=== PATIENT | female | born 1990 | race African-American/Black ===

== ENCOUNTER 2016-10-21 04:50 | Emergency (ER) | payer BC ==
[2016-10-21] MEDS ORDERED: IBUPROFEN 800 MG TABLET PO ONE (07:51)
--- NOTE | 2016-10-21 07:54 | ER Document Report ---
ED General - General Chief Complaint: Nausea/Vomiting Stated Complaint: ABDOMINAL PAIN AND BACK PAIN Mode of Arrival: Medic Information source: Patient Notes: Patient presents to the emergency department via EMS for reports that she was woken up at approximately 300 this morning with severe abdominal pain with nausea vomiting. She reports she had one bowel movement. She reports cough with yellow sputum for the past week. Denies fever. She now reports headache since they gave her aspirin by EMS. Patient looks nontoxic, no active coughing. TRAVEL OUTSIDE OF THE [place] IN LAST 30 DAYS: No - HPI Onset: This morning - 0300 Onset/Duration: Sudden Quality of pain: Sharp Severity: Severe Associated symptoms: Productive cough, Headache, Nausea, Vomiting Exacerbated by: Denies Relieved by: Denies Similar symptoms previously: No Recently seen / treated by doctor: No - Related Data Allergies/Adverse Reactions: No Known Allergies Allergy (Verified 10/21/16 05:13) Past Medical History - General Information source: Patient Last Menstrual Period: 09/19/16 - Social History Smoking Status: Current Every Day Smoker Cigarette use (# per day): Yes Chew tobacco use (# tins/day): No Frequency of alcohol use: None Drug Abuse: None Occupation: [employer] Family History: Reviewed & Not Pertinent Pulmonary Medical History: Reports: Hx Asthma Neurological Medical History: Reports: Hx Migraine Renal/ Medical History: Denies: Hx Peritoneal Dialysis Surgical Hx: Negative - Immunizations Hx Diphtheria, Pertussis, Tetanus Vaccination: Yes Review of Systems - Review of Systems Notes: Review HPI for review of systems., All other systems negative Physical Exam - Vital signs Vitals: Temp Pulse Resp BP Pulse Ox 98.2 F 69 16 111/64 100 10/21/16 05:20 10/21/16 05:20 10/21/16 05:20 10/21/16 05:20 10/21/16 05:20 - Notes Notes: PHYSICAL EXAMINATION: GENERAL: Well-appearing and in no acute distress nontoxic looking HEAD: Atraumatic, normocephalic. EYES: Pupils equal round and reactive to light, extraocular movements intact, sclera anicteric, conjunctiva are normal. ENT: TM WNL, nares patent, oropharynx clear without exudates. Moist mucous membranes. NECK: Normal range of motion, supple without lymphadenopathy LUNGS: CTAB and equal. No wheezes rales or rhonchi. HEART: Regular rate and rhythm without murmurs ABDOMEN: Soft, no tenderness. No guarding, no rebound BACK: Left flank pain EXTREMITIES: Normal range of motion, no pitting edema. No cyanosis. NEUROLOGICAL: Cranial nerves grossly intact. Normal sensory/motor exams. PSYCH: Normal mood, normal affect. SKIN: Warm, Dry, normal turgor, no rashes or lesions noted Course - Re-evaluation Re-evalutation: 10/21/16 09:29 Positive nitrite Patient updated on UTI. Discussed Macrobid. Patient instructed to push fluids take meds as prescribed follow up with primary care - Vital Signs Vital signs: Temp Pulse Resp BP Pulse Ox 98.2 F 69 16 111/64 100 10/21/16 05:20 10/21/16 05:20 10/21/16 05:20 10/21/16 05:20 10/21/16 05:20 - Laboratory Result Diagrams: 10/21/16 08:00 10/21/16 08:00 Laboratory results interpreted by me: 10/21/16 10/21/16 08:00 08:00 Sodium 136.9 L Chloride 108 H Urine Nitrite POSITIVE H Discharge - Discharge Clinical Impression: UTI (urinary tract infection) Nausea & vomiting Qualifiers: Vomiting type: unspecified Vomiting Intractability: non-intractable Qualified Code(s): R11.2 - Nausea with vomiting, unspecified Condition: Stable Disposition: HOME, SELF-CARE Instructions: Antinausea Medication ([facility]), Urinary Tract Infection ([facility]), Nitrofurantoin ([facility]) Additional Instructions: *You have been evaluated for nausea and vomiting, abdominal pain, UTI *Take medication as prescribed *Cheerier temperature take Tylenol or Motrin as indicated *Push fluids *Follow up with your primary care provider within one week for recheck *Plan urine recheck in one week *Return to ED for worsening condition, changes, needs, fever, increased pain Prescriptions: Nitrofurantoin/Nitrofuran Mac [Macrobid 100 mg Capsule] 100 mg PO BID #20 capsule Ondansetron [Zofran Odt 4 mg Tablet] 1 - 2 tab PO Q4H #10 tab.rapdis Forms: Return to Work
[2016-10-21 08:26] LABS: ABSOLUTE BASOPHILS # (AUTO) 0.1 10^3/uL (0.0-0.2); ABSOLUTE LYMPHOCYTES (AUTO) 1.1 10^3/uL (0.5-4.7); ABSOLUTE MONOCYTES (AUTO) 0.4 10^3/uL (0.1-1.4); ABSOLUTE NEUT (AUTO) 5.6 10^3/uL (1.7-8.2); BASOPHILS % (AUTO) 1.1 % (0-2); EOSINOPHILS % (AUTO) 0.3 % (0-6); HEMATOCRIT 36.3 % (36.0-47.0); HEMOGLOBIN 12.1 g/dL (12.0-15.5); LYMPHOCYTES % (AUTO) 15.9 % (13-45); MEAN CORPUSCULAR HEMOGLOBIN 27.9 pg (27.0-33.4); MEAN CORPUSCULAR HGB CONC 33.4 g/dL (32.0-36.0); MEAN CORPUSCULAR VOLUME 84 fl (80-97); MONOCYTES % (AUTO) 5.2 % (3-13); RED BLOOD COUNT 4.34 10^6/uL (3.72-5.28); RED CELL DISTRIBUTION WIDTH 13.3 % (11.5-14.0); SEGMENTED NEUTROPHILS % (AUTO) 77.5 % (42-78); WHITE BLOOD COUNT 7.2 10^3/uL (4.0-10.5)
[2016-10-21 08:29] LABS: APPEARANCE,URINE SLIGHTLY-CLOUDY; BILIRUBIN,URINE NEGATIVE (NEGATIVE); GLUCOSE, URINE NEGATIVE (NEGATIVE); KETONES,URINE NEGATIVE (NEGATIVE); LEUKOCYTE ESTERASE,URINE NEGATIVE (NEGATIVE); NITRITE,URINE POSITIVE (NEGATIVE); PROTEIN,URINE NEGATIVE (NEGATIVE); URINE SPECIFIC GRAVITY 1.015; UROBILINOGEN,URINE NEGATIVE mg/dL (<2.0)
[2016-10-21 08:47] LABS: ALANINE AMINOTRANSFERASE 33 U/L (9-52); ALBUMIN 3.5 g/dL (3.5-5.0); ALKALINE PHOSPHATASE 78 U/L (38-126); ANION GAP 7 (5-19); ASPARTATE AMINO TRANSFERASE 21 U/L (14-36); BILIRUBIN,TOTAL 0.3 mg/dL (0.2-1.3); BLOOD UREA NITROGEN 10 mg/dL (7-20); CALCIUM 9.6 mg/dL (8.4-10.2); CARBON DIOXIDE 22 mmol/L (22-30); CHLORIDE 108 mmol/L (98-107); CREATININE RESULT 0.61 mg/dL (0.52-1.25); GLUCOSE 87 mg/dL (75-110); POTASSIUM 4.2 mmol/L (3.6-5.0); SODIUM 136.9 mmol/L (137-145); TOTAL PROTEIN 6.5 g/dL (6.3-8.2)
[2016-10-21] MEDS ORDERED: ONDANSETRON 4 MG TAB.RAPDIS PO ONE (09:29)
[2016-10-21 10:01] VITALS: BP 136/86
== END 2016-10-21 09:40 | disposition home or self-care (01) ==
LOC: ER 04:50
DX: N39.0 Urinary tract infection, site not specified (principal); R11.2 Nausea with vomiting, unspecified; R10.9 Unspecified abdominal pain; M54.9 Dorsalgia, unspecified; R51 Headache; R05 Cough; F17.210 Nicotine dependence, cigarettes, uncomplicated
CPT/HCPCS: 99284; 36415; 87086; 85025; 81025; 87088; 80053; 81001; 87186; 87804; 71020; S0119

== ENCOUNTER 2016-12-09 08:48 | Emergency (ER) | payer BC ==
[2016-12-09] MEDS ORDERED: ACETAMINOPHEN 325 MG TABLET PO ONE (10:24)
--- NOTE | 2016-12-09 10:27 | ER Document Report ---
ED Respiratory Problem - General Chief Complaint: Cold Symptoms Stated Complaint: POSSIBLE FLU SYMPTOMS Time seen by provider: 10:22 Mode of Arrival: Ambulatory Information source: Patient Notes: 26-year-old female presents to cough congestion flulike symptoms air pain and sore throat and productive cough but denies fever. States symptoms have been for about a week she does have a history of asthma and anxiety. TRAVEL OUTSIDE OF THE [place] IN LAST 30 DAYS: No - HPI Patient complains to provider of: Asthma Onset: Last week Duration: Continuous Initiating Event: URI Quality of pain: Achy Severity: Mild Pain Level: 2 Cough: Productive Sputum amount: Small Sputum color: Yellow Sputum consistency: Thick Associated symptoms: Cough, PND, Runny nose, Sinus pain/pressure Similar symptoms previously: Yes Recently seen / treated by doctor: No - Related Data Allergies/Adverse Reactions: No Known Allergies Allergy (Verified 12/09/16 09:00) Past Medical History - General Information source: Patient - Social History Smoking Status: Current Every Day Smoker Cigarette use (# per day): Yes - 2-3 cigarettes a day Chew tobacco use (# tins/day): No Smoking Education Provided: Yes - less than 2 minutes Frequency of alcohol use: None Drug Abuse: None Occupation: call center Lives with: Alone Family History: CAD, DM, Hyperlipidemia, Hypertension, Malignancy Patient has suicidal ideation: No Patient has homicidal ideation: No - Past Medical History Cardiac Medical History: Reports: None Pulmonary Medical History: Reports: Hx Asthma EENT Medical History: Reports: None Neurological Medical History: Reports: Hx Migraine Endocrine Medical History: Reports: None Renal/ Medical History: Reports: None Malignancy Medical History: Reports: None GI Medical History: Reports: None Musculoskeltal Medical History: Reports None Skin Medical History: Reports None Psychiatric Medical History: Reports: Hx Anxiety Traumatic Medical History: Reports: None Infectious Medical History: Reports: None Surgical Hx: Negative Past Surgical History: Reports: None - Immunizations Hx Diphtheria, Pertussis, Tetanus Vaccination: Yes Review of Systems - Review of Systems Constitutional: Recent illness EENT: Nose discharge, Sinus discharge, Throat pain Cardiovascular: No symptoms reported Respiratory: Cough Gastrointestinal: No symptoms reported Genitourinary: No symptoms reported Female Genitourinary: No symptoms reported Musculoskeletal: No symptoms reported Skin: No symptoms reported Hematologic/Lymphatic: No symptoms reported Neurological/Psychological: No symptoms reported -: Yes All other systems reviewed and negative Physical Exam - Vital signs Vitals: Temp Pulse Resp BP Pulse Ox 98.2 F 78 16 121/66 99 12/09/16 09:02 12/09/16 09:02 12/09/16 09:02 12/09/16 09:02 12/09/16 09:02 Interpretation: Normal - General General appearance: Appears well, Alert - HEENT Head: Normocephalic, Atraumatic Eyes: Normal Pupils: PERRL Ears: Normal External canal: Normal Tympanic membrane: Normal Sinus: Normal Nasal: Purulent discharge Mouth/Lips: Normal Mucous membranes: Normal Pharynx: Post nasal drainage Neck: Normal - Respiratory Respiratory status: No respiratory distress Chest status: Nontender Breath sounds: Normal Chest palpation: Normal - Cardiovascular Rhythm: Regular Heart sounds: Normal auscultation Murmur: No - Abdominal Inspection: Normal Distension: No distension Bowel sounds: Normal Tenderness: Nontender Organomegaly: No organomegaly - Back Back: Normal, Nontender - Extremities General upper extremity: Normal inspection, Nontender, Normal color, Normal ROM , Normal temperature General lower extremity: Normal inspection, Nontender, Normal color, Normal ROM , Normal temperature, Normal weight bearing. No: Myron's sign - Neurological Neuro grossly intact: Yes Cognition: Normal Orientation: AAOx4 [place] Coma Scale Eye Opening: Spontaneous [place] Coma Scale Verbal: Oriented [place] Coma Scale Motor: Obeys Commands [place]ár[place] Coma Scale Total: 15 Speech: Normal Motor strength normal: LUE, RUE, LLE, RLE Sensory: Normal - Psychological Associated symptoms: Normal affect, Normal mood - Skin Skin Temperature: Warm Skin Moisture: Dry Skin Color: Normal Course - Re-evaluation Re-evalutation: 12/09/16 11:18 Discussed labs with patient discussed careful fluid with patient. Patient instructed to call her work place and let them know that she will be out until she is fever free due to having influenza. - Vital Signs Vital signs: Temp Pulse Resp BP Pulse Ox 98.4 F 61 16 130/85 H 100 12/09/16 11:31 12/09/16 11:31 12/09/16 09:02 12/09/16 11:31 12/09/16 11:31 Discharge - Discharge Clinical Impression: Influenza A Condition: Stable Disposition: HOME, SELF-CARE Instructions: Family Physicians / Practices Additional Instructions: INFLUENZA: The physician feels that you have influenza -- the "flu". Influenza is an infection caused by a virus. Symptoms include generalized aching, fever, headache, dry cough, and fatigue. Some patients with the flu also have nausea, vomiting, and diarrhea. The fever and aches usually last two to four days, with the cough persisting another one to two weeks. Treatment of the flu, for the most part, is simply treatment of symptoms. Rest, drink plenty of fluids, and use acetaminophen for fever and aches. Do not take aspirin. There is an anti-viral medication, called Tamiflu, which may help in "type A" flu, but it's not helpful in every case of flu, and only works if started within the first 24 - 48 hours of the start of symptoms. The physician will determine whether this medication can help you. To prevent spread of the virus, use good handwashing. Shared toys should be cleaned with disinfectant. Clean the toilets, sinks, and counter surfaces in bathrooms. Launder clothing in hot water. What are conditions that should receive medical attention? The development of difficulty breathing. Lip color changes to blue or purple. Persistent vomiting and unable to keep liquids down with signs of dehydration such as: dizziness when standing, unable to urinate, or if child/ is crying no tears are noticed. Is less responsive than normal or becomes confused. How do I decrease the spread of flu in my home? Taking care of the sick patient at home: Keep the sick person in a room separate from the common areas of the house. Keep the "sickroom" door closed. If the person with the flu needs to leave the home, they should cover their nose/mouth when coughing or sneezing and wear a disposable (surgical) mask if available. These masks may be available at your local pharmacy, medical supply and hardware store. If the sick person is in common areas of the house, have them wear a surgical mask. If possible, have the sick person use a separate bathroom that should be cleaned daily with a household disinfectant. If you are the caregiver: Avoid being face to face with the sick adult person as much as possible. Try to stay at least 6 feet away and wear a disposable surgical mask when possible. When holding small children who are sick, place their chin on your shoulder so that they will not cough in your face. Wash your hands after you touch the sick person or handle their tissues and laundry. Wear a mask if you leave home, as you may be infected from taking care of someone and not know it yet. Watch yourself and others in the home for flu symptoms and contact your doctor if symptoms occur. NOTE: Antiviral medication used to reduce the symptoms of the flu works only if taken within 48 hours, and best within 24 hours of symptom onset. Household Cleaning, laundry and waste disposal: Tissues and other disposable items used by the sick person should be thrown away in the trash. Wash your hands after touching these used items. No special waste disposal is required. Keep surfaces (especially bedside tables, bathroom surfaces, and toys for children) clean by wiping them down with a safe household disinfectant according to the directions on the product label. Per Center for Disease Control advice, most people will not receive testing to confirm flu. Also based on the person's health history and onset of symptoms, not all patients will receive prescriptions for antiviral medications. If you have questions related to this, please ask your healthcare provider. For more information, you can call the Centers for Disease Control and Prevention (CDC) Hotline at 1-996-YWReoSemi This line is available in Indonesian and Bol[place]ian, 24 hours a day, 7 days a week. Or www.[employer] or www.cdc.gov Flu-Like Illness Home Instructions: The influenza virus infection can cause a wide rage of symptoms, including: Fever, cough, sore throat, body aches, headaches, chills, fatigue, with some patients reporting diarrhea and vomiting Like seasonal influenza A, H1N1 ("swine flu")in humans can vary in severity from mild to severe Severe illness with pneumonia, respiratory failure and even is possible Certain groups might be more likely to develop a severe illness from H1N1 infection. Sometimes bacterial infections may occur at the same time as or after infection with influenza viruses and lead to pneumonias, ear infections, or sinus infections. How Flu Spreads The main way that influenza viruses spread is through respiratory droplets of coughs and sneezes. This can happen when someone with the infection coughs or sneezes and the particles fly through the air and land on other people and surfaces. If the person covers their mouth and nose with their hand but does not wash their hands immediately, then these germs are passed onto the next object that they touch. People with Influenza A or suspected H1N1 (swine flu) who are cared for at home should: Check with their doctor about any special care that they might need if they are or have a health condition such as diabetes, heart disease, asthma or emphysema. Also, limit caregiver to one (if possible). women or those with chronic health conditions should not take care of the flu patient unless necessary. Check with their doctor about whether or not medications are needed that may lessen the symptoms of the flu. Stay at home until 24 hours fever free without the use of fever reducing medication. Get plenty of rest and avoid other healthy people in your home. Drink plenty of clear liquids to keep from getting dehydrated. Take medications like Tylenol (Acetaminophen), Advil/Motrin/Nuprin ( Ibuprofen) or Aleve (Naproxen) for fevers and aches. All children under the age of 18 years of age should not take aspirin or products containing aspirin (e.g. Pepto Bismol), as this can cause a rare serious illness called [place] Syndrome. Over the counter medications for flu and colds may help, but it is very important to follow the package directions. Remember that the medicine may help the symptoms, but it will not help prevent others from getting sick if they are around you. Cover coughs and sneezes using your bent arm. Clean hands with soap and water or an alcohol-based hand rub often, especially after using tissues to cough or sneeze. Encourage hand washing frequently for all people living in the home! The sick person should not have visitors other than caregivers. Encourage concerned loved ones to call instead of visit. Avoid close contact with others-do not go to work or school while sick. USE OF ACETAMINOPHEN (Tylenol): Acetaminophen may be taken for pain relief or fever control. It's much safer than aspirin, offering a wider range of "safe" dosages. It is safe during . Some brand names are Tylenol, Panadol, Datril, Anacin 3, Tempra, and Liquiprin. Acetaminophen can be repeated every four hours. The following are maximum recommended dosages: WEIGHT Dose Drops Elixir Chewable( 80mg) (LBS.) drprs=droppers tsp=teaspoon 6 40 mg 0.4 ml (1/2) 6-11 80 mg 0.8 ml (full) tsp 1 tab 12-16 120 mg 1 1/2 drprs 3/4 tsp 1 1/2 tabs 17-23 160 mg 2 drprs 1 tsp 2 tabs 24-30 240 mg 3 drprs 1 1/2 tsp 3 tabs 30-35 320 mg 2 tsp 4 tabs 36-41 360 mg 2 1/4 tsp 4 1/2 tabs 42-47 400 mg 2 1/2 tsp 5 tabs 48-53 480 mg 3 tsp 6 tabs 54-59 520 mg 3 1/4 tsp 6 1/2 tabs 60-64 560 mg 3 1/2 tsp 7 tabs 65-70 600 mg 3 3/4 tsp 7 1/2 tabs 71-76 640 mg 4 tsp 8 tabs 77-82 720 mg 4 1/2 tsp 9 tabs 83-88 800 mg 5 tsp 10 tabs >89 pounds or adults 650 mg to 900 mg Acetaminophen can be repeated every four hours. Maximum dose not to exceed 4000 mg a day. These maximum recommended dosages are slightly higher than the dosages written on the product container, but these dosages are very safe and below the toxic dosage for acetaminophen. FOLLOW-UP CARE: If you have been referred to a physician for follow-up care, call the physician s office for an appointment as you were instructed or within the next two days. If you experience worsening or a significant change in your symptoms, notify the physician immediately or return to the Emergency Department at any time for re-evaluation. Forms: Return to Work
[2016-12-09 11:57] VITALS: BP 130/85
== END 2016-12-09 11:32 | disposition home or self-care (01) ==
LOC: ER 08:48
DX: J09.X2 Influenza due to identified novel influenza A virus with other respiratory manifestations (principal); R05 Cough; R09.81 Nasal congestion; J02.9 Acute pharyngitis, unspecified; F17.210 Nicotine dependence, cigarettes, uncomplicated
CPT/HCPCS: 87070; 87077; 87804; 87880; 99283

== ENCOUNTER 2017-01-07 11:11 | Emergency (ER) | payer BC ==
--- NOTE | 2017-01-07 11:49 | ER Document Report ---
HPI - HPI Pain Level: 4 Context: 26 yo female c/o sore throat, ear pain and headache x 2 days. no fever,no neck pain Associated Symptoms: Earache, Sinus pain/drainage. denies: Fever, Nausea, Shortness of breath Exacerbated by: Denies Relieved by: Denies Similar symptoms previously: Yes Recently seen / treated by doctor: No - ROS Systems Reviewed and Negative: Yes All other systems reviewed and negative - REPRODUCTIVE Reproductive: DENIES: : - DERM Skin Color: Normal Past Medical History - General Information source: Patient - Social History Smoking Status: Current Every Day Smoker Frequency of alcohol use: None Drug Abuse: None Lives with: Family Family History: CAD, DM, Hyperlipidemia, Hypertension, Malignancy Patient has suicidal ideation: No Patient has homicidal ideation: No - Medical History Medical History: Negative Pulmonary Medical History: Reports: Hx Asthma Neurological Medical History: Reports: Hx Migraine Renal/ Medical History: Denies: Hx Peritoneal Dialysis Psychiatric Medical History: Reports: Hx Anxiety - Immunizations Hx Diphtheria, Pertussis, Tetanus Vaccination: Yes Vertical Provider Document - CONSTITUTIONAL Agree With Documented VS: Yes Exam Limitations: No Limitations - INFECTION CONTROL TRAVEL OUTSIDE OF THE [place] IN LAST 30 DAYS: No - HEENT HEENT: Atraumatic, Pharyngeal Tenderness. negative: Pharyngeal Exudate, Pharyngeal Erythema, Tympanic Membrane Red - + bilat effusion - NECK Neck: Normal Inspection, Supple - RESPIRATORY Respiratory: Breath Sounds Normal, No Respiratory Distress O2 Sat by Pulse Oximetry: 100 - CARDIOVASCULAR Cardiovascular: Regular Rate, Regular Rhythm - NEURO Level of Consciousness: Awake, Alert - DERM Integumentary: Warm, Dry Course - Vital Signs Vital signs: Temp Pulse Resp BP Pulse Ox 98.3 F 74 20 131/74 H 100 01/07/17 11:19 01/07/17 11:19 01/07/17 11:19 01/07/17 11:19 01/07/17 11:19 Discharge - Discharge Clinical Impression: Pain, dental Headache Qualifiers: Headache type: unspecified Headache chronicity pattern: acute headache Intractability: not intractable Qualified Code(s): R51 - Headache Serous otitis media Qualifiers: Laterality: bilateral Chronicity: acute Recurrence: not specified as recurrent Qualified Code(s): H65.03 - Acute serous otitis media, bilateral Condition: Stable Disposition: HOME, SELF-CARE Instructions: Penicillin V K ([facility]), Toothache ([facility]), Serous Otitis Media ([facility]) , Decongestant Medication ([facility]) Additional Instructions: meds as prescribed recommend OTC Sudafed for fluid behind ear drums follow up with your primary care if symptoms persist Prescriptions: Penicillin V Potassium [Penicillin Vk 500 mg Tablet] 500 mg PO BID #20 tablet Tramadol HCl [Ultram 50 mg Tablet] 50 mg PO ASDIR PRN #20 tablet PRN Reason: Forms: Return to Work
[2017-01-07 11:59] VITALS: BP 121/81
== END 2017-01-07 12:06 | disposition home or self-care (01) ==
LOC: ER 11:11
DX: H65.03 Acute serous otitis media, bilateral (principal); K08.89 Other specified disorders of teeth and supporting structures; R51 Headache; J34.89 Other specified disorders of nose and nasal sinuses; J02.9 Acute pharyngitis, unspecified; F17.200 Nicotine dependence, unspecified, uncomplicated; J45.909 Unspecified asthma, uncomplicated
CPT/HCPCS: 99282

== ENCOUNTER 2017-02-13 12:09 | Emergency (ER) | payer BC ==
--- NOTE | 2017-02-13 12:50 | ER Document Report ---
ED Medical Screen (RME) - General Chief Complaint: Abdominal Pain Stated Complaint: ABDOMINAL PAIN Time Seen by Provider: 02/13/17 12:45 Notes: 26-year-old female with one-week history of pelvic pain with low back pain also has bitemporal headache and dizziness. There is no vaginal discharge, bleeding , or urinary tract infection symptoms. LMP was 01/17/2017 with unprotected sex reported. I have greeted and performed a rapid initial assessment of this patient. A comprehensive ED assessment and evaluation of the patient, analysis of test results and completion of the medical decision making process will be conducted by additional ED providers. TRAVEL OUTSIDE OF THE [place] IN LAST 30 DAYS: No - Related Data Allergies/Adverse Reactions: No Known Allergies Allergy (Verified 02/13/17 12:18) Past Medical History - Social History Chew tobacco use (# tins/day): No Frequency of alcohol use: None Drug Abuse: None Pulmonary Medical History: Reports: Hx Asthma Neurological Medical History: Reports: Hx Migraine Renal/ Medical History: Denies: Hx Peritoneal Dialysis Psychiatric Medical History: Reports: Hx Anxiety - Immunizations Hx Diphtheria, Pertussis, Tetanus Vaccination: Yes Physical Exam - Vital signs Vitals: Temp Pulse Resp BP Pulse Ox 98.3 F 69 18 130/83 H 98 02/13/17 12:18 02/13/17 12:18 02/13/17 12:18 02/13/17 12:18 02/13/17 12:18 Course - Vital Signs Vital signs: Temp Pulse Resp BP Pulse Ox 98.3 F 69 18 130/83 H 98 02/13/17 12:18 02/13/17 12:18 02/13/17 12:18 02/13/17 12:18 02/13/17 12:18
[2017-02-13 13:37] LABS: ABSOLUTE BASOPHILS # (AUTO) 0.1 10^3/uL (0.0-0.2); ABSOLUTE MONOCYTES (AUTO) 0.3 10^3/uL (0.1-1.4); ABSOLUTE NEUT (AUTO) 4.3 10^3/uL (1.7-8.2); EOSINOPHILS % (AUTO) 0.6 % (0-6); HEMATOCRIT 42.2 % (36.0-47.0); HEMOGLOBIN 14.2 g/dL (12.0-15.5); HGB HCT DIFFERENCE 0.4; MEAN CORPUSCULAR HEMOGLOBIN 28.2 pg (27.0-33.4); MEAN CORPUSCULAR HGB CONC 33.5 g/dL (32.0-36.0); MEAN CORPUSCULAR VOLUME 84 fl (80-97); MONOCYTES % (AUTO) 4.3 % (3-13); RED BLOOD COUNT 5.02 10^6/uL (3.72-5.28); RED CELL DISTRIBUTION WIDTH 13.8 % (11.5-14.0); SEGMENTED NEUTROPHILS % (AUTO) 64.1 % (42-78); WHITE BLOOD COUNT 6.8 10^3/uL (4.0-10.5)
[2017-02-13 13:49] LABS: APPEARANCE,URINE SLIGHTLY-CLOUDY; BILIRUBIN,URINE NEGATIVE (NEGATIVE); GLUCOSE, URINE NEGATIVE (NEGATIVE); KETONES,URINE NEGATIVE (NEGATIVE); LEUKOCYTE ESTERASE,URINE NEGATIVE (NEGATIVE); NITRITE,URINE NEGATIVE (NEGATIVE); PROTEIN,URINE NEGATIVE (NEGATIVE); URINE SPECIFIC GRAVITY 1.009; UROBILINOGEN,URINE NEGATIVE mg/dL (<2.0)
[2017-02-13 13:59] LABS: ALANINE AMINOTRANSFERASE 20 U/L (9-52); ALBUMIN 4.5 g/dL (3.5-5.0); ALKALINE PHOSPHATASE 77 U/L (38-126); ANION GAP 13 (5-19); ASPARTATE AMINO TRANSFERASE 17 U/L (14-36); BILIRUBIN,DIRECT 0.3 mg/dL (0.0-0.4); BILIRUBIN,TOTAL 0.6 mg/dL (0.2-1.3); BLOOD UREA NITROGEN 10 mg/dL (7-20); CARBON DIOXIDE 23 mmol/L (22-30); CHLORIDE 105 mmol/L (98-107); GLUCOSE 90 mg/dL (75-110); POTASSIUM 3.7 mmol/L (3.6-5.0); SODIUM 140.6 mmol/L (137-145); TOTAL PROTEIN 7.7 g/dL (6.3-8.2)
[2017-02-13] MEDS ORDERED: KETOROLAC TROMETHAMINE 60 MG/2 ML SDV IM ONE (14:34)
[2017-02-13] MEDS ORDERED: DIPHENHYDRAMINE HCL 50 MG/ML VIAL IM ONE (14:34)
[2017-02-13] MEDS ORDERED: PROCHLORPERAZINE EDISYLATE INJ 10 MG/2 ML VIAL IM ONE (14:34)
--- NOTE | 2017-02-13 14:35 | ER Document Report ---
ED GI/ - General Mode of Arrival: Ambulatory Information source: Patient TRAVEL OUTSIDE OF THE [place] IN LAST 30 DAYS: No - HPI Patient complains to provider of: Abdominal pain Associated symptoms: Dizzy Similar symptoms previously: Yes Recently seen / treated by doctor: No <REYNALDO ESTRADA - Last Filed: 02/13/17 16:56> <ROBERJUSTYNAHANH - Last Filed: 02/13/17 19:14> - General Chief Complaint: Abdominal Pain Stated Complaint: ABDOMINAL PAIN Time Seen by Provider: 02/13/17 12:45 Notes: Patient is a 26 year old female presenting to the emergency department for a headache and abdominal pain. Patient states that she has had 1 week of headaches and abdominal pain. Patient states she usually gets headaches but they are not as intense and they always go away on their own. Patient also complains of some dizziness that is waxing and waning over the past 2-3 days. Patient states she has dizziness usually with her headaches. Patient states she also has some discomfort in her ears. Patient describes her headache as throbbing or stabbing. Patient has taken Tylenol, Aleve, Ibuprofen, Sudafed, and Claritin for her headache. Patient denies any history of seasonal allergies. Patient denies diarrhea, rhinorrhea, sore throat, nausea, vomiting, fevers, dysuria, hematuria, or vaginal discharge. Patient has a history of anxiety. Patient also complains of sharp abdominal pains that have been waxing and waning for 1 week. Patient's last menstrual period was 01/17/2017 and patient reported that she had unprotected sex recently. (REYNALDO ESTRADA) - Related Data Allergies/Adverse Reactions: No Known Allergies Allergy (Verified 02/13/17 12:18) Past Medical History - General Information source: Patient - Social History Smoking Status: Current Every Day Smoker Chew tobacco use (# tins/day): No Frequency of alcohol use: None Drug Abuse: None Family History: CAD, DM, Hyperlipidemia, Hypertension, Malignancy Patient has suicidal ideation: No Patient has homicidal ideation: No Pulmonary Medical History: Reports: Hx Asthma Neurological Medical History: Reports: Hx Migraine Psychiatric Medical History: Reports: Hx Anxiety Surgical Hx: Negative - Immunizations Hx Diphtheria, Pertussis, Tetanus Vaccination: Yes <REYNALDO ESTRADA - Last Filed: 02/13/17 16:56> Review of Systems - Review of Systems Constitutional: No symptoms reported EENT: See HPI, Ear pain Cardiovascular: See HPI, Dizziness Respiratory: No symptoms reported Gastrointestinal: See HPI, Abdominal pain Genitourinary: No symptoms reported Female Genitourinary: No symptoms reported Musculoskeletal: No symptoms reported Skin: No symptoms reported Hematologic/Lymphatic: No symptoms reported Neurological/Psychological: See HPI, Headaches -: Yes All other systems reviewed and negative <REYNALDO ESTRADA - Last Filed: 02/13/17 16:56> Physical Exam <REYNALDO ESTRADA - Last Filed: 02/13/17 16:56> <HANH JEAN - Last Filed: 02/13/17 19:14> - Vital signs Vitals: Temp Pulse Resp BP Pulse Ox 98.3 F 69 18 130/83 H 98 02/13/17 12:18 02/13/17 12:18 02/13/17 12:18 02/13/17 12:18 02/13/17 12:18 - Notes Notes: GENERAL: Alert, interacts well. No acute distress. HEAD: Normocephalic, atraumatic. EYES: Pupils equal, round, and reactive to light. Extraocular movements intact. ENT: Oral mucosa moist, tongue midline, cobblestoning. Nares patent, clear rhinorrhea with turbinate edema to the left nare, no nasal septal hematoma. Right TM injected with small amount of clear fluid, left TM has clear fluid with no injection. NECK: Full range of motion. Supple. Trachea midline. LUNGS: Clear to auscultation bilaterally, no wheezes, rales, or rhonchi. No respiratory distress. HEART: Regular rate and rhythm. No murmurs, gallops, or rubs. ABDOMEN: Soft, left lower quadrant tenderness to palpation. Non-distended. Bowel sounds present in all 4 quadrants. BACK: No CVA tenderness to percussion. EXTREMITIES: Moves all 4 extremities spontaneously. Equal print project manager strength. No edema, radial and dorsalis pedis pulses 2/4 bilaterally. No cyanosis. NEUROLOGICAL: Alert and oriented x3. Normal speech. Cranial nerves II through XII grossly intact. Biceps and patellar DTRs 2+ bilaterally. PSYCH: Normal affect, normal mood. SKIN: Warm, dry, normal turgor. No rashes or lesions noted. (REYNALDO ESTRADA) Course - Laboratory Result Diagrams: 02/13/17 13:02 02/13/17 13:02 <REYNALDO ESTRADA - Last Filed: 02/13/17 16:56> - Laboratory Result Diagrams: 02/13/17 13:02 02/13/17 13:02 <HANH JEAN - Last Filed: 02/13/17 19:14> - Re-evaluation Re-evalutation: 02/13/17 14:53 Headache is similar to when she has had in the past including the dizziness, only differences it is more painful this time. No new neurologic symptoms, it is in the same distribution. Patient's headaches always resolve on their own in the past. No trauma and does not take any blood thinners. Suspect this etiology behind these headaches given their distribution and the clear fluid behind the tympanic membranes as well as the turbinate edema in the right nostril. Patient will be treated with nasal steroids and decongestants, immediate headache relief will be given using Toradol, Compazine and Benadryl. Patient will be discharged home with a 2 week course of decongestants and nasal steroids. Regarding the abdominal pain that is worst in the left lower quadrant do not currently have an etiology for this however CBC and chemistries are both unremarkable, urinalysis shows small amount of blood and negative test. No evidence of infection. There is not enough blood to make me suspect a kidney stone. Patient was warned to return should her pain worsen or become more focal. (HANH JEAN) - Vital Signs Vital signs: Temp Pulse Resp BP Pulse Ox 98.2 F 70 18 128/83 H 100 02/13/17 15:38 02/13/17 15:38 02/13/17 15:38 02/13/17 15:38 02/13/17 15:38 - Laboratory Laboratory results interpreted by me: 02/13/17 13:02 Urine Blood SMALL H Discharge <REYNALDO ESTRADA - Last Filed: 02/13/17 16:56> <HANH JEAN - Last Filed: 02/13/17 19:14> - Discharge Clinical Impression: Sinus headache, Allergic sinusitis, Generalized abdominal pain of unknown etiology Condition: Stable Disposition: HOME, SELF-CARE Additional Instructions: Headache The physician does not feel that the headache you are experiencing has a serious underlying cause. Most headaches are due to emotional stress, with resultant muscle tension (tension headache). Occasionally, headaches are secondary to changes in the blood vessels of the scalp (vascular headache and migraine headache). Sometimes, a headache is the first symptom of another developing illness, such as a viral infection. You have no evidence of stroke, bleeding, meningitis, or other serious cause of your headache. The treatment of headaches varies with the severity and cause of the pain. Not all headaches need pain shots. In fact, there is evidence that using narcotics for headaches may make them worse in the long run. The physician will determine the therapy that's in your best interest. If you develop a fever, if the headache is different from any you've previously experienced, or if the headache progressively worsens, then call your physician at once or go to the emergency room. Abdominal Pain There are many causes of abdominal pain. Pain can mean a serious problem requiring surgery (such as appendicitis). It can also be an innocent problem that goes away on its own (such as a viral infection). Often, time must pass to determine the cause of pain. The physician does not feel that hospitalization is necessary, at present. Things may change within the next 24 hours. Call the doctor or come back for re- examination if any problems occur, such as: (1) Pain that becomes more severe, steady, or becomes concentrated in one specific area. Also, pain that is more severe with movement or coughing. (2) Vomiting that persists or becomes more frequent. (3) Blood in the vomitus, urine, or bowel movements. Blood in the stool may have a tarry or black appearance. (4) Shaking chills or fever greater than 100 degrees F. (5) The abdomen becomes more distended or swollen. (6) Bowel movements cease. (7) Failure to improve as expected. Prescriptions: Fluticasone Propionate [Flonase Nasal [place] 50 Mcg/[place] 16 gm] 2 sprays NASL Q12 #1 inhaler Loratadine [Claritin] 10 mg PO DAILY #14 tablet Forms: Return to Work Scribe Attestation: 02/13/17 19:14 I personally performed the services described in the documentation, reviewed and edited the documentation which was dictated to the scribe in my presence, and it accurately records my words and actions. (HANH JEAN) Scribe Documentation - Scribe Written by Scribe:: Femi Cardona 02/13/17 16:25 acting as scribe for :: Aron <REYNALDO ESTRADA - Last Filed: 02/13/17 16:56>
[2017-02-13 15:39] VITALS: BP 128/83
== END 2017-02-13 15:39 | disposition home or self-care (01) ==
LOC: ER 12:09
DX: J01.90 Acute sinusitis, unspecified (principal); R10.84 Generalized abdominal pain; R51 Headache; F17.200 Nicotine dependence, unspecified, uncomplicated
CPT/HCPCS: 99284; 96372; 36415; 85025; 81025; 80053; 81001; J1200; J1885; J0780

== ENCOUNTER 2017-05-14 11:12 | Emergency (ER) | payer BC ==
[2017-05-14] MEDS ORDERED: OXYCODONE-ACETAMINOPHEN 5-325 MG TABLET PO ONE (11:31)
[2017-05-14 12:24] LABS: ABSOLUTE BASOPHILS # (AUTO) 0.1 10^3/uL (0.0-0.2); ABSOLUTE LYMPHOCYTES (AUTO) 1.4 10^3/uL (0.5-4.7); ABSOLUTE MONOCYTES (AUTO) 0.3 10^3/uL (0.1-1.4); ABSOLUTE NEUT (AUTO) 3.8 10^3/uL (1.7-8.2); BASOPHILS % (AUTO) 1.7 % (0-2); EOSINOPHILS % (AUTO) 0.8 % (0-6); HEMATOCRIT 36.9 % (36.0-47.0); HEMOGLOBIN 12.3 g/dL (12.0-15.5); LYMPHOCYTES % (AUTO) 24.8 % (13-45); MEAN CORPUSCULAR HEMOGLOBIN 28.5 pg (27.0-33.4); MEAN CORPUSCULAR HGB CONC 33.4 g/dL (32.0-36.0); MEAN CORPUSCULAR VOLUME 85 fl (80-97); MONOCYTES % (AUTO) 5.1 % (3-13); RED BLOOD COUNT 4.33 10^6/uL (3.72-5.28); SEGMENTED NEUTROPHILS % (AUTO) 67.6 % (42-78); WHITE BLOOD COUNT 5.6 10^3/uL (4.0-10.5)
[2017-05-14 12:32] LABS: APPEARANCE,URINE CLEAR; BILIRUBIN,URINE NEGATIVE (NEGATIVE); GLUCOSE, URINE NEGATIVE (NEGATIVE); KETONES,URINE NEGATIVE (NEGATIVE); LEUKOCYTE ESTERASE,URINE NEGATIVE (NEGATIVE); NITRITE,URINE NEGATIVE (NEGATIVE); PROTEIN,URINE NEGATIVE (NEGATIVE); URINE SPECIFIC GRAVITY 1.004; UROBILINOGEN,URINE NEGATIVE mg/dL (<2.0)
[2017-05-14 12:45] LABS: ALANINE AMINOTRANSFERASE 20 U/L (9-52); ALKALINE PHOSPHATASE 74 U/L (38-126); ANION GAP 8 (5-19); ASPARTATE AMINO TRANSFERASE 17 U/L (14-36); BILIRUBIN,DIRECT 0.4 mg/dL (0.0-0.4); BILIRUBIN,TOTAL 0.4 mg/dL (0.2-1.3); BLOOD UREA NITROGEN 9 mg/dL (7-20); CARBON DIOXIDE 24 mmol/L (22-30); CHLORIDE 108 mmol/L (98-107); CREATININE RESULT 0.65 mg/dL (0.52-1.25); GLUCOSE 80 mg/dL (75-110); POTASSIUM 4.5 mmol/L (3.6-5.0); SODIUM 139.8 mmol/L (137-145); TOTAL PROTEIN 6.7 g/dL (6.3-8.2)
[2017-05-14] MEDS ORDERED: ONDANSETRON 4 MG TAB.RAPDIS PO ONE (13:14)
--- NOTE | 2017-05-14 13:46 | ER Document Report ---
ED Medical Screen (RME) - General Chief Complaint: Pain All Over Stated Complaint: CHEST PAIN,BACK PAIN,HEADACHE Time Seen by Provider: 05/14/17 11:31 Mode of Arrival: Ambulatory Information source: Patient Notes: Patient complains of diffuse body aches. She states has been going on for 2 days. It is been constant. Nothing makes it better or worse. The pain does radiate throughout her body. She states is been moderate and aching sensation. No vomiting or diarrhea. No joint swelling. No rashes. No fevers. TRAVEL OUTSIDE OF THE [place] IN LAST 30 DAYS: No - Related Data Allergies/Adverse Reactions: No Known Allergies Allergy (Verified 05/14/17 11:26) Past Medical History - General Information source: Patient - Social History Frequency of alcohol use: Occasional Drug Abuse: None Family history: Reviewed & Not Pertinent Pulmonary Medical History: Reports: Hx Asthma Neurological Medical History: Reports: Hx Migraine Renal/ Medical History: Denies: Hx Peritoneal Dialysis Psychiatric Medical History: Reports: Hx Anxiety - Immunizations Hx Diphtheria, Pertussis, Tetanus Vaccination: Yes Review of Systems - Review of Systems Constitutional: Malaise, Weakness Cardiovascular: Chest pain. denies: Palpitations Gastrointestinal: Abdominal pain. denies: Diarrhea, Vomiting -: Yes All other systems reviewed and negative Physical Exam - Vital signs Vitals: Temp Pulse Resp BP Pulse Ox 97.8 F 76 16 124/90 H 100 05/14/17 11:25 05/14/17 11:25 05/14/17 11:25 05/14/17 11:25 05/14/17 11:25 Interpretation: Normal - General General appearance: Appears well, Alert - HEENT Head: Normocephalic, Atraumatic Eyes: Normal Pupils: PERRL - Respiratory Respiratory status: No respiratory distress Chest status: Nontender Breath sounds: Normal Chest palpation: Normal - Cardiovascular Rhythm: Regular Heart sounds: Normal auscultation Murmur: No - Abdominal Inspection: Normal Distension: No distension Bowel sounds: Normal Tenderness: Nontender Organomegaly: No organomegaly - Back Back: Normal, Nontender - Extremities General upper extremity: Normal inspection, Nontender, Normal color, Normal ROM , Normal temperature General lower extremity: Normal inspection, Nontender, Normal color, Normal ROM , Normal temperature, Normal weight bearing. No: Myron's sign - Neurological Neuro grossly intact: Yes Cognition: Normal Orientation: AAOx4 Bár[place] Coma Scale Eye Opening: Spontaneous [place]ár[place] Coma Scale Verbal: Oriented [place]ár[place] Coma Scale Motor: Obeys Commands Bárbara Coma Scale Total: 15 Speech: Normal Motor strength normal: LUE, RUE, LLE, RLE Sensory: Normal - Psychological Associated symptoms: Normal affect, Normal mood - Skin Skin Temperature: Warm Skin Moisture: Dry Skin Color: Normal Course - Vital Signs Vital signs: Temp Pulse Resp BP Pulse Ox 97.8 F 76 16 124/90 H 100 05/14/17 11:25 05/14/17 11:25 05/14/17 11:25 05/14/17 11:25 05/14/17 11:25 - Laboratory Result Diagrams: 05/14/17 11:55 05/14/17 11:55 Laboratory results interpreted by me: 05/14/17 05/14/17 11:55 11:55 Chloride 108 H Urine Blood MODERATE H Doctor's Discharge - Discharge Clinical Impression: Myalgia Condition: Stable Disposition: HOME, SELF-CARE Additional Instructions: Please follow-up with your primary care physician as scheduled Prescriptions: Hydrocodone/Acetaminophen [[place] 5-325 mg Tablet] 1 tab PO Q6 PRN #6 tablet PRN Reason: Ondansetron HCl [Zofran 4 mg Tablet] 1 - 2 tab PO Q4H PRN #10 tablet PRN Reason: Forms: Elevated Blood Pressure, Return to Work Referrals: EVETTE REDD MD [ACTIVE STAFF] - Follow up as needed
[2017-05-14 13:57] VITALS: BP 129/84
== END 2017-05-14 13:53 | disposition home or self-care (01) ==
LOC: ER 11:12
DX: M79.1 Myalgia (principal); R07.9 Chest pain, unspecified; M54.9 Dorsalgia, unspecified; R51 Headache
CPT/HCPCS: 99283; 36415; 85025; 81025; 80053; 81001; S0119

== ENCOUNTER 2017-08-19 12:17 | Emergency (ER) | payer BC ==
[2017-08-19 12:23] VITALS: BP 121/74
--- NOTE | 2017-08-19 13:06 | ER Document Report ---
HPI - HPI Patient complains to provider of: cold symptoms Pain Level: 4 Context: 26 yo female c/o headache, earche, sore throat, hoarse voice, cough, body aches x 3-4 days Associated Symptoms: Body/muscle aches, Chills, Nonproductive cough, Earache, Headache, Hoarseness, Hurts to breath, Vomiting - 2 days ago, none since then, Rhinnorhea, Sore throat. denies: Fever Exacerbated by: Denies Relieved by: Denies Similar symptoms previously: Yes Recently seen / treated by doctor: No - CONSTITUTIONAL Constitutional: DENIES: Fever, Chills - EENT EENT: REPORTS: Sore Throat, Ear Pain. DENIES: Eye problems - NEURO Neurology: DENIES: Headache - CARDIOVASCULAR Cardiovascular: REPORTS: Chest pain - cough, DB - RESPIRATORY Respiratory: REPORTS: Coughing. DENIES: Trouble Breathing - GASTROINTESTINAL Gastrointestinal: DENIES: Abdominal Pain, Black / Bloody Stools - REPRODUCTIVE Reproductive: DENIES: : Past Medical History - General Information source: Patient - Social History Smoking Status: Current Every Day Smoker Frequency of alcohol use: None Drug Abuse: None Lives with: Family Family History: CAD, DM, Hyperlipidemia, Hypertension, Malignancy Patient has suicidal ideation: No Patient has homicidal ideation: No Pulmonary Medical History: Reports: Hx Asthma Neurological Medical History: Reports: Hx Migraine Renal/ Medical History: Denies: Hx Peritoneal Dialysis Psychiatric Medical History: Reports: Hx Anxiety - Immunizations Hx Diphtheria, Pertussis, Tetanus Vaccination: Yes Vertical Provider Document - CONSTITUTIONAL Agree With Documented VS: Yes Exam Limitations: No Limitations - INFECTION CONTROL TRAVEL OUTSIDE OF THE [place] IN LAST 30 DAYS: No - HEENT HEENT: Atraumatic, Pharyngeal Erythema, Tympanic Membrane Red - TMs dull bilat - NECK Neck: Supple. negative: Lymphadenopathy-Left, Lymphadenopathy-Right - RESPIRATORY Respiratory: Breath Sounds Normal, No Respiratory Distress O2 Sat by Pulse Oximetry: 100 - CARDIOVASCULAR Cardiovascular: Regular Rate, Regular Rhythm - GI/ABDOMEN Gastrointestinal: Abdomen Soft, Abdomen Non-Tender - MUSCULOSKELETAL/EXTREMETIES Musculoskeletal/Extremeties: GARY, FROM Course - Re-evaluation Re-evalutation: 08/19/17 13:03 H&P c/w viral URI. no s/s sepsis, meningitis, pneumonia, CHF, epiglottitis. home treatment, pcp follow up, ED return precautions discussed. pt agreeable and stable for discharge 08/19/17 13:05 - Vital Signs Vital signs: Temp Pulse Resp BP Pulse Ox 98.8 F 84 14 121/74 100 08/19/17 12:23 08/19/17 12:23 08/19/17 12:23 08/19/17 12:23 08/19/17 12:23 Discharge - Discharge Clinical Impression: Laryngitis URI (upper respiratory infection) Qualifiers: URI type: unspecified viral URI Qualified Code(s): J06.9 - Acute upper respiratory infection, unspecified; B97.89 - Other viral agents as the cause of diseases classified elsewhere; B97.89 - Other viral agents as the cause of diseases classified elsewhere Condition: Stable Disposition: HOME, SELF-CARE Instructions: Acetaminophen, Laryngitis ([facility]), Upper Respiratory Illness ([facility]) Additional Instructions: You have a viral upper respiratory illness recommend OTC antihistamine/decongestant rest and hydrate follow up pcm if symptoms persist more than 10 days Forms: Return to Work
== END 2017-08-19 13:12 | disposition home or self-care (01) ==
LOC: ER 12:17
DX: J04.0 Acute laryngitis (principal); J06.9 Acute upper respiratory infection, unspecified; H92.09 Otalgia, unspecified ear; M79.1 Myalgia; F17.200 Nicotine dependence, unspecified, uncomplicated
CPT/HCPCS: 99283

== ENCOUNTER 2019-07-09 19:38 | Emergency (ER) | payer SELFPAY ==
--- NOTE | 2019-07-09 19:59 | ER Document Report ---
ED Medical Screen (RME) - General Chief Complaint: Flank Pain Stated Complaint: LEFT SIDE AND BACK PAIN Time Seen by Provider: 07/09/19 19:56 Mode of Arrival: Ambulatory Information source: Patient Notes: 28-year-old female presented to ED for complaint of left flank pain for a week. She states she does not have a history of kidney stones but her family does have a history of kidney problems. Last menstrual cycle June 15. Denies any nausea vomiting or diarrhea. Denies smoking drinking or use of illicit drugs. Denies any past medical history I have greeted and performed a rapid initial assessment of this patient. A comprehensive ED assessment and evaluation of the patient, analysis of test results and completion of medical decision making process will be conducted by an additional ED providers. TRAVEL OUTSIDE OF THE [place] IN LAST 30 DAYS: No - Related Data Allergies/Adverse Reactions: No Known Allergies Allergy (Verified 08/19/17 12:18) Past Medical History - Social History Family history: Reviewed & Not Pertinent Pulmonary Medical History: Reports: Hx Asthma Neurological Medical History: Reports: Hx Migraine Renal/ Medical History: Denies: Hx Peritoneal Dialysis Psychiatric Medical History: Reports: Hx Anxiety - Immunizations Hx Diphtheria, Pertussis, Tetanus Vaccination: Yes
[2019-07-09] MEDS ORDERED: ACETAMINOPHEN 325 MG TABLET PO ONE (20:01)
[2019-07-09 20:17] LABS: ABSOLUTE EOSINOPHILS # (AUTO) 0.1 10^3/uL (0.0-0.6); ABSOLUTE MONOCYTES (AUTO) 0.4 10^3/uL (0.1-1.4); BASOPHILS % (AUTO) 0.5 % (0-2); EOSINOPHILS % (AUTO) 1.7 % (0-6); HEMATOCRIT 38.9 % (36.0-47.0); HEMOGLOBIN 13.2 g/dL (12.0-15.5); LYMPHOCYTES % (AUTO) 35.9 % (13-45); MEAN CORPUSCULAR HEMOGLOBIN 28.2 pg (27.0-33.4); MEAN CORPUSCULAR HGB CONC 33.8 g/dL (32.0-36.0); MEAN CORPUSCULAR VOLUME 83 fl (80-97); MONOCYTES % (AUTO) 7.8 % (3-13); PLATELET COUNT 454 10^3/uL (150-450); RED BLOOD COUNT 4.67 10^6/uL (3.72-5.28); RED CELL DISTRIBUTION WIDTH 14.2 % (11.5-14.0); SEGMENTED NEUTROPHILS % (AUTO) 54.1 % (42-78); TOTAL CELLS COUNTED % (AUTO) 100 %; WHITE BLOOD COUNT 5.6 10^3/uL (4.0-10.5)
[2019-07-09 20:33] LABS: ALBUMIN 4.4 g/dL (3.5-5.0); ALKALINE PHOSPHATASE 70 U/L (38-126); ANION GAP 10 (5-19); ASPARTATE AMINO TRANSFERASE 20 U/L (14-36); BILIRUBIN,DIRECT 0.1 mg/dL (0.0-0.4); BILIRUBIN,TOTAL 0.2 mg/dL (0.2-1.3); BLOOD UREA NITROGEN 12 mg/dL (7-20); CALCIUM 10.2 mg/dL (8.4-10.2); CARBON DIOXIDE 24 mmol/L (22-30); CHLORIDE 107 mmol/L (98-107); GLUCOSE 74 mg/dL (75-110); POTASSIUM 3.9 mmol/L (3.6-5.0); TOTAL PROTEIN 7.4 g/dL (6.3-8.2)
[2019-07-09] MEDS ORDERED: FENTANYL CITRATE INJ/PF 100 MCG/2 ML AMPUL IV ONE (20:38)
[2019-07-09] MEDS ORDERED: NORMAL SALINE 1000 ML 1,000 ML IV ONE (20:38)
[2019-07-09 20:53] LABS: APPEARANCE,URINE SLIGHTLY-CLOUDY; BILIRUBIN,URINE NEGATIVE (NEGATIVE); COLOR,URINE YELLOW; GLUCOSE, URINE NEGATIVE (NEGATIVE); KETONES,URINE NEGATIVE (NEGATIVE); PROTEIN,URINE NEGATIVE (NEGATIVE); URINE SPECIFIC GRAVITY 1.018; UROBILINOGEN,URINE NEGATIVE mg/dL (<2.0)
[2019-07-09 21:07] LABS: BACTERIA,URINE TRACE /HPF
--- NOTE | 2019-07-09 21:11 | RADIOLOGY REPORT (SQ) ---
EXAM DESCRIPTION: US RETROPERITONEUM COMPLETED DATE/TME: 07/09/2019 20:00 CLINICAL HISTORY: 28 years Female Left flank pain COMPARISON: None. TECHNIQUE: Transabdominal grayscale imaging were performed to evaluate the retroperitoneum FINDINGS: The kidneys appear unremarkable. No evidence of hydronephrosis mass or calculus. Urinary bladder is nondistended with a volume of 10 mL. IMPRESSION: Unremarkable kidneys
[2019-07-09] MEDS ORDERED: CEFTRIAXONE 1 GM/D5W RTU 1 GM/50 ML RTUPB IV ONE (21:40)
[2019-07-09] MEDS ORDERED: MORPHINE SULFATE 10 MG/ML INJ IV ONE (22:13)
--- NOTE | 2019-07-09 22:15 | ER Document Report ---
ED GI/ - General Chief Complaint: Flank Pain Stated Complaint: LEFT SIDE AND BACK PAIN Time Seen by Provider: 07/09/19 19:56 Primary Care Provider: [facility] [Provider Group] - Follow up as needed Mode of Arrival: Ambulatory Information source: Patient Notes: Patient presents complaining of left flank pain and left lower quadrant abdominal pain for the past week. Patient presently states that flank pain is resolved but she still does have the left lower quadrant abdominal pain. Patient states pain has been constant. No nausea vomiting or diarrhea. Patient does report malodorous urine. Patient denies any vaginal bleeding or discharge. No concern about . TRAVEL OUTSIDE OF THE [place] IN LAST 30 DAYS: No - HPI Patient complains to provider of: Abdominal pain, Flank pain. No: Vaginal discharge, Vomiting Onset: Last week Timing/Duration: Persistent Quality of pain: Sharp Pain Level: 5 Location: LLQ Vaginal bleeding (Compared to normal period): None Menstrual period history: denies: Associated symptoms: denies: Dysuria, Fever, Nausea, Urinary hesitancy, Urinary frequency, Urinary retention, Urinary urgency, Vaginal discharge, Vomiting Exacerbated by: Denies Relieved by: Denies Similar symptoms previously: No Recently seen / treated by doctor: No - Related Data Allergies/Adverse Reactions: No Known Allergies Allergy (Verified 08/19/17 12:18) Past Medical History - General Information source: Patient - Social History Smoking Status: Current Every Day Smoker Chew tobacco use (# tins/day): No Frequency of alcohol use: None Drug Abuse: None Occupation: None Family History: CAD, DM, Hyperlipidemia, Hypertension, Malignancy Patient has suicidal ideation: No Patient has homicidal ideation: No Pulmonary Medical History: Reports: Hx Asthma Neurological Medical History: Reports: Hx Migraine Renal/ Medical History: Denies: Hx Peritoneal Dialysis Psychiatric Medical History: Reports: Hx Anxiety Past Surgical History: Reports: Hx Tonsillectomy - Immunizations Hx Diphtheria, Pertussis, Tetanus Vaccination: Yes Review of Systems - Review of Systems Constitutional: No symptoms reported. denies: Fever EENT: No symptoms reported Cardiovascular: No symptoms reported. denies: Chest pain Respiratory: No symptoms reported. denies: Cough Gastrointestinal: Abdominal pain. denies: Diarrhea, Nausea, Vomiting Genitourinary: Flank pain. denies: Dysuria Female Genitourinary: No symptoms reported Musculoskeletal: Back pain Skin: No symptoms reported Hematologic/Lymphatic: No symptoms reported Neurological/Psychological: No symptoms reported Physical Exam - Vital signs Vitals: Temp Pulse Resp BP Pulse Ox 98.5 F 103 H 18 129/84 H 100 07/09/19 19:45 07/09/19 19:45 07/09/19 19:45 07/09/19 19:45 07/09/19 19:45 - General General appearance: Appears well, Alert In distress: None - Respiratory Respiratory status: No respiratory distress Chest status: Nontender Breath sounds: Normal. No: Rales, Rhonchi, Stridor, Wheezing Chest palpation: Normal - Cardiovascular Rhythm: Regular Heart sounds: S1 appreciated, S2 appreciated Murmur: No - Abdominal Inspection: Normal Distension: No distension Bowel sounds: Normal Tenderness: Tender - LLQ Organomegaly: No organomegaly - Genitourinary External exam: Normal Speculum exam: Cervix closed, Vaginal discharge Vaginal bleeding: None Bimanuel exam: Cervical motion tender - Back Back: Normal, Nontender. No: CVA tenderness - Extremities General upper extremity: Normal inspection, Normal strength General lower extremity: Normal inspection, Normal strength - Neurological Neuro grossly intact: Yes Cognition: Normal Bárbara Coma Scale Eye Opening: Spontaneous Bárbara Coma Scale Verbal: Oriented Bárbara Coma Scale Motor: Obeys Commands Bárbara Coma Scale Total: 15 - Psychological Associated symptoms: Normal affect, Normal mood - Skin Skin Temperature: Warm Skin Moisture: Dry Skin Color: Normal Course - Re-evaluation Re-evalutation: 07/09/19 23:57 Patient with positive trichomonas test as well as cervical motion tenderness worrisome for PID. Patient has incidental nephrolithiasis noted on the left side, no ureteral stone. Patient does have UTI that I suspect is likely result of the trichomonas infection. We will culture the urine and treat for PID at this time. - Vital Signs Vital signs: Temp Pulse Resp BP Pulse Ox 98.7 F 79 18 123/81 100 07/10/19 00:37 07/10/19 00:37 07/10/19 00:37 07/10/19 00:37 07/09/19 21:01 - Laboratory Result Diagrams: 07/09/19 20:02 07/09/19 20:02 Laboratory results interpreted by me: 07/09/19 07/09/19 07/09/19 20:02 20:02 20:02 RDW 14.2 H Plt Count 454 H Glucose 74 L Urine Blood SMALL H Urine Nitrite (Reflex) POSITIVE H Leukocyte Esterase Rfl TRACE H 07/10/19 06:18 Labs- Entire Visit 07/09/19 07/09/19 07/09/19 20:02 20:02 20:02 WBC 5.6 RBC 4.67 Hgb 13.2 Hct 38.9 MCV 83 MCH 28.2 MCHC 33.8 RDW 14.2 H Plt Count 454 H Lymph % (Auto) 35.9 Milam % (Auto) 7.8 Eos % (Auto) 1.7 Baso % (Auto) 0.5 Absolute Neuts (auto) 3.0 Absolute Lymphs (auto) 2.0 Absolute Monos (auto) 0.4 Absolute Eos (auto) 0.1 Absolute Basos (auto) 0.0 Seg Neutrophils % 54.1 Sodium 141.0 Potassium 3.9 Chloride 107 Carbon Dioxide 24 Anion Gap 10 BUN 12 Creatinine 0.71 Est GFR ( Amer) > 60 Est GFR (MDRD) Non-Af > 60 Glucose 74 L Calcium 10.2 Total Bilirubin 0.2 Direct Bilirubin 0.1 Neonat Total Bilirubin Not Reportable Neonat Direct Bilirubin Not Reportable Neonat Indirect Bili Not Reportable AST 20 ALT 17 Alkaline Phosphatase 70 Total Protein 7.4 Albumin 4.4 Beta HCG, Quant < 2.39 Total Beta HCG NEGATIVE Urine Color YELLOW Urine Appearance SLIGHTLY-CLOUDY Urine pH 6.0 Ur Specific Freedom 1.018 Urine Protein NEGATIVE Urine Glucose (UA) NEGATIVE Urine Ketones NEGATIVE Urine Blood SMALL H Urine Nitrite (Reflex) POSITIVE H Urine Bilirubin NEGATIVE Urine Urobilinogen NEGATIVE Leukocyte Esterase Rfl TRACE H Urine RBC Urine WBC (Reflex) Ur Squamous Epith Cells Urine Bacteria Urine Ascorbic Acid NEGATIVE Epi Cells (Wet Prep) Bacteria (Wet Prep) Trichomonas (Wet Prep) Vaginal WBC Vaginal Yeast Chlamydia DNA (PCR) N.gonorrhoeae DNA (PCR) 07/09/19 07/09/19 07/09/19 20:02 22:03 22:03 WBC RBC Hgb Hct MCV MCH MCHC RDW Plt Count Lymph % (Auto) Milam % (Auto) Eos % (Auto) Baso % (Auto) Absolute Neuts (auto) Absolute Lymphs (auto) Absolute Monos (auto) Absolute Eos (auto) Absolute Basos (auto) Seg Neutrophils % Sodium Potassium Chloride Carbon Dioxide Anion Gap BUN Creatinine Est GFR ( Amer) Est GFR (MDRD) Non-Af Glucose Calcium Total Bilirubin Direct Bilirubin Neonat Total Bilirubin Neonat Direct Bilirubin Neonat Indirect Bili AST ALT Alkaline Phosphatase Total Protein Albumin Beta HCG, Quant Total Beta HCG Urine Color Urine Appearance Urine pH Ur Specific Freedom Urine Protein Urine Glucose (UA) Urine Ketones Urine Blood Urine Nitrite (Reflex) Urine Bilirubin Urine Urobilinogen Leukocyte Esterase Rfl Urine RBC 1-5 Urine WBC (Reflex) 1-5 Ur Squamous Epith Cells MODERATE Urine Bacteria TRACE Urine Ascorbic Acid Epi Cells (Wet Prep) 3+ EPITHELIALS SEEN Bacteria (Wet Prep) 3+ BACTERIA SEEN Trichomonas (Wet Prep) TRICHOMONAS SEEN Vaginal WBC FEW WBCS SEEN Vaginal Yeast YEAST SEEN Chlamydia DNA (PCR) NOT DETECTED N.gonorrhoeae DNA (PCR) NOT DETECTED - Diagnostic Test Radiology reviewed: Reports reviewed Discharge - Discharge Clinical Impression: PID (acute pelvic inflammatory disease), Trichomoniasis, Renal stone UTI (urinary tract infection) Qualifiers: Urinary tract infection type: site unspecified Hematuria presence: with hem aturia Qualified Code(s): N39.0 - Urinary tract infection, site not specified Abdominal pain Qualifiers: Abdominal location: lower abdomen, unspecified Qualified Code(s): R10.30 - Lower abdominal pain, unspecified Condition: Stable Disposition: HOME, SELF-CARE Instructions: Antinausea Medication ([facility]), Doxycycline ([facility]), Metronidazole ([facility]), Pelvic Inflammatory Disease ([facility]), Trichomonas Infection ([facility]), Urinary Tract Infection ([facility]), Vaginal Yeast Infection ([facility]) Additional Instructions: Return immediately for any new or worsening symptoms Followup with your primary care provider, call tomorrow to make a followup appointment Have your partner seek treatment for trichomonas. Urine culture is pending, we will call if you need any different treatment You had an incidental finding of a left renal stone. Follow-up with urology for any persistent problems. Prescriptions: Doxycycline Hyclate 100 mg PO BID #28 capsule Metronidazole [Flagyl 500 mg Tablet] 500 mg PO BID #14 tablet Naproxen [Naprosyn 250 Nmg Tablet] 1 tab PO BID #14 tablet Referrals: [facility] [Provider Group] - Follow up as needed
[2019-07-09 22:18] LABS: BACTERIA (WET MOUNT) 3+ BACTERIA SEEN; EPITHELIALS (WET MOUNT) 3+ EPITHELIALS SEEN; T.VAGINALIS (WET MOUNT) TRICHOMONAS SEEN; WBCS (WET MOUNT) FEW WBCS SEEN; YEAST (WET MOUNT) YEAST SEEN
[2019-07-09] MEDS ORDERED: FLUCONAZOLE 100 MG TABLET PO ONE (23:16)
[2019-07-09] MEDS ORDERED: METRONIDAZOLE 500 MG TABLET PO ONE (23:16)
--- NOTE | 2019-07-09 23:30 | RADIOLOGY REPORT (SQ) ---
EXAM DESCRIPTION: CT ABDOMEN PELVIS WITHOUT IV CONTRAST COMPLETED DATE/TME: 07/09/2019 22:13 CLINICAL HISTORY: LLQ, L flank pain COMPARISON: None Available. TECHNIQUE: CT of the abdomen and pelvis without IV contrast. Evaluation of the solid organs and vasculature is suboptimal due to lack of IV contrast. FINDINGS: Lung Bases: The visualized lung bases are clear. Bones: No destructive bone lesions identified. Abdomen: Liver: The liver has normal size and density. Gallbladder: No calcified gallstones. Spleen, Pancreas, and Adrenal Glands: The spleen, pancreas, and adrenal glands are unremarkable. Kidneys: Punctate nonobstructing left nephrolithiasis. No hydronephrosis or obstructing calculus. Vasculature: The aorta and IVC have normal caliber and position. Stomach: The stomach and duodenum have normal course. Other: No free intraperitoneal air. No free fluid or lymphadenopathy. Pelvis: Bladder: Urinary bladder is unremarkable. Bowel: No dilated loops of large or small bowel. Appendix: Normal appendix. Pelvis: Uterus is not enlarged. Trace free pelvic fluid. IMPRESSION: 1. Trace free pelvic fluid of indeterminate etiology. This may be physiologic.. 2. Punctate nonobstructing left nephrolithiasis. This exam was performed according to our departmental dose-optimization program, which includes automated exposure control, adjustment of the mA and/or kV according to patient size and/or use of iterative reconstruction technique.
[2019-07-09 23:43] LABS: CHLAM PCR NOT DETECTED (NOT DETECT)
[2019-07-09] MEDS ORDERED: ONDANSETRON HCL INJ/PF 4 MG/2 ML SDV IV ONE (23:49)
[2019-07-10] MEDS ORDERED: HYDROCODONE/ACETAMINOPHEN 5-325 MG (6 TAB/ER DISP) PO PRN (00:17)
[2019-07-10 00:39] VITALS: BP 123/81
== END 2019-07-10 00:37 | disposition home or self-care (01) ==
LOC: ER 19:38
DX: N73.0 Acute parametritis and pelvic cellulitis (principal); A59.9 Trichomoniasis, unspecified; N20.0 Calculus of kidney; N39.0 Urinary tract infection, site not specified; R10.30 Lower abdominal pain, unspecified; R10.32 Left lower quadrant pain; F17.200 Nicotine dependence, unspecified, uncomplicated
CPT/HCPCS: 36415; 87086; 87210; 84702; 85025; 87088; 80053; 81001; 87491; 87591; 76770; 74176; J3010; J2270; J2405; J7030; J0696; 87186

== ENCOUNTER 2019-07-31 17:09 | Emergency (ER) | payer SELFPAY ==
[2019-07-31 17:18] VITALS: BP 126/84
--- NOTE | 2019-07-31 17:43 | ER Document Report ---
ED Medical Screen (RME) - General Chief Complaint: Flank Pain Stated Complaint: FLANK PAIN,BACK PAIN, HEADACHE Time Seen by Provider: 07/31/19 17:38 Mode of Arrival: Ambulatory Information source: Patient Notes: 28-year-old female presented to ED for complaint of left flank pain with pain with urination times a week. She states she has been having nausea. She was seen here on July 09 and was diagnosed with tiny nonobstructing kidney stones on the left with no hydronephrosis. You have been having the nausea any vomiting. She states she has been having nausea but no vomiting. She is alert oriented respirations regular nonlabored speaking in full sentences. Last menstrual period was 07/16/2019. I have greeted and performed a rapid initial assessment of this patient. A comprehensive ED assessment and evaluation of the patient, analysis of test results and completion of medical decision making process will be conducted by an additional ED providers. TRAVEL OUTSIDE OF THE [place] IN LAST 30 DAYS: No - Related Data Allergies/Adverse Reactions: No Known Allergies Allergy (Verified 07/31/19 17:33) Past Medical History - Social History Chew tobacco use (# tins/day): No Frequency of alcohol use: None Drug Abuse: None Family history: Reviewed & Not Pertinent Pulmonary Medical History: Reports: Hx Asthma Neurological Medical History: Reports: Hx Migraine Renal/ Medical History: Denies: Hx Peritoneal Dialysis Psychiatric Medical History: Reports: Hx Anxiety Past Surgical History: Reports: Hx Tonsillectomy - Immunizations Hx Diphtheria, Pertussis, Tetanus Vaccination: Yes Physical Exam - Vital signs Vitals: Temp Pulse Resp BP Pulse Ox 98.3 F 87 14 126/84 H 100 07/31/19 17:16 07/31/19 17:16 07/31/19 17:16 07/31/19 17:16 07/31/19 17:16 Course - Vital Signs Vital signs: Temp Pulse Resp BP Pulse Ox 98.3 F 87 14 126/84 H 100 07/31/19 17:16 07/31/19 17:16 07/31/19 17:16 07/31/19 17:16 07/31/19 17:16
[2019-07-31 18:13] LABS: ABSOLUTE EOSINOPHILS # (AUTO) 0.1 10^3/uL (0.0-0.6); ABSOLUTE LYMPHOCYTES (AUTO) 1.7 10^3/uL (0.5-4.7); ABSOLUTE MONOCYTES (AUTO) 0.4 10^3/uL (0.1-1.4); ABSOLUTE NEUT (AUTO) 2.8 10^3/uL (1.7-8.2); BASOPHILS % (AUTO) 0.6 % (0-2); EOSINOPHILS % (AUTO) 1.6 % (0-6); HEMATOCRIT 36.6 % (36.0-47.0); HEMOGLOBIN 12.2 g/dL (12.0-15.5); LYMPHOCYTES % (AUTO) 34.1 % (13-45); MEAN CORPUSCULAR HEMOGLOBIN 27.9 pg (27.0-33.4); MEAN CORPUSCULAR HGB CONC 33.3 g/dL (32.0-36.0); MEAN CORPUSCULAR VOLUME 84 fl (80-97); MONOCYTES % (AUTO) 7.7 % (3-13); PLATELET COUNT 427 10^3/uL (150-450); RED BLOOD COUNT 4.38 10^6/uL (3.72-5.28); TOTAL CELLS COUNTED % (AUTO) 100 %; WHITE BLOOD COUNT 5.1 10^3/uL (4.0-10.5)
[2019-07-31 18:32] LABS: ALBUMIN 3.7 g/dL (3.5-5.0); ALKALINE PHOSPHATASE 67 U/L (38-126); ANION GAP 8 (5-19); APPEARANCE,URINE SLIGHTLY-CLOUDY; ASPARTATE AMINO TRANSFERASE 24 U/L (14-36); BILIRUBIN,DIRECT 0.1 mg/dL (0.0-0.4); BILIRUBIN,TOTAL 0.3 mg/dL (0.2-1.3); BILIRUBIN,URINE NEGATIVE (NEGATIVE); BLOOD UREA NITROGEN 13 mg/dL (7-20); CALCIUM 9.5 mg/dL (8.4-10.2); CARBON DIOXIDE 23 mmol/L (22-30); CHLORIDE 109 mmol/L (98-107); COLOR,URINE YELLOW; GLUCOSE 78 mg/dL (75-110); GLUCOSE, URINE NEGATIVE (NEGATIVE); KETONES,URINE NEGATIVE (NEGATIVE); POTASSIUM 4.4 mmol/L (3.6-5.0); PROTEIN,URINE NEGATIVE (NEGATIVE); TOTAL PROTEIN 6.4 g/dL (6.3-8.2); URINE SPECIFIC GRAVITY 1.015; UROBILINOGEN,URINE NEGATIVE mg/dL (<2.0)
--- NOTE | 2019-07-31 18:45 | RADIOLOGY REPORT (SQ) ---
EXAM DESCRIPTION: U/S RETROPERITON (RENAL/AORTA) COMPLETED DATE/TIME: 07/31/2019 6:29 pm REASON FOR STUDY: left flank pain COMPARISON: 07/09/2019 TECHNIQUE: Dynamic and static grayscale images acquired of the kidneys and bladder and recorded on P ACS. Additional selected color Doppler and spectral images recorded. LIMITATIONS: None. FINDINGS: RIGHT KIDNEY: Normal size. Normal echogenicity. No solid or suspicious masses. No hydronep hrosis. No calcifications. LEFT KIDNEY: Normal size. Normal echogenicity. No solid or suspicious masses. No hydronephrosis. No calcifications. OTHER FINDINGS: No other significant finding. IMPRESSION: No hydronephrosis. TECHNICAL DOCUMENTATION: JOB ID: [id number] [id number] 2010 [employer]- All Rights Reserved Reading location - IP/workstation name: [email or web address]
== END 2019-07-31 20:02 | disposition left against medical advice (07) ==
LOC: ER 17:09
DX: R10.9 Unspecified abdominal pain (principal); R30.0 Dysuria; R11.0 Nausea; J45.909 Unspecified asthma, uncomplicated; Z87.442 Personal history of urinary calculi; Z53.20 Procedure and treatment not carried out because of patient's decision for unspecified reasons
CPT/HCPCS: 36415; 76770; 80053; 81001; 84703; 85025; 99281

== ENCOUNTER 2019-08-27 07:53 | Emergency (ER) | payer SELFPAY ==
--- NOTE | 2019-08-27 08:58 | RADIOLOGY REPORT (SQ) ---
EXAM DESCRIPTION: CHEST SINGLE VIEW COMPLETED DATE/TIME: 08/27/2019 8:49 am REASON FOR STUDY: cough COMPARISON: None. EXAM PARAMETERS: NUMBER OF VIEWS: One view. TECHNIQUE: Single frontal radiographic view of the chest acquired. RADIATION DOSE: NA LIMITATIONS: None. FINDINGS: LUNGS AND PLEURA: No opacities, masses or pneumothorax. No pleural effusion. MEDIASTINUM AND HILAR STRUCTURES: No masses. Contour normal. HEART AND VASCULAR STRUCTURES: Heart normal in size. Normal vasculature. BONES: No acute findings. HARDWARE: None in the chest. OTHER: No other significant finding. IMPRESSION: NO ACUTE RADIOGRAPHIC FINDING IN THE CHEST. TECHNICAL DOCUMENTATION: JOB ID: [id number] [employer]- All Rights Reserved Reading location - IP/workstation name: [email or web address]
[2019-08-27] MEDS ORDERED: PSEUDOEPHEDRINE HCL 30 MG TABLET PO ONE (09:45)
[2019-08-27] MEDS ORDERED: PREDNISONE 20 MG TABLET PO ONE (09:45)
[2019-08-27] MEDS ORDERED: IPRATROPIUM/ALBUTEROL 0.5-2.5 MG/3 ML AMPUL NEB ONE (09:45)
--- NOTE | 2019-08-27 10:19 | ER Document Report ---
HPI - HPI Patient complains to provider of: Cold symptoms Time Seen by Provider: 08/27/19 09:08 Onset/Duration: Persistent Quality of pain: Achy Pain Level: 2 Context: Patient presents complaining of cough congestion for the past 3 weeks. Patient reports occasional productive yellow cough. No fever. Patient does report a history of asthma and is out of her inhaler. Associated Symptoms: Nonproductive cough, Rhinnorhea. denies: Fever, Nausea, Vomiting, Sore throat Exacerbated by: Denies Relieved by: Denies Similar symptoms previously: Yes Recently seen / treated by doctor: No - ROS ROS below otherwise negative: Yes Systems Reviewed and Negative: Yes All other systems reviewed and negative - CONSTITUTIONAL Constitutional: DENIES: Fever, Chills - EENT EENT: REPORTS: Sore Throat, Nasal Drainage-Clear, Congestion - CARDIOVASCULAR Cardiovascular: DENIES: Chest pain - RESPIRATORY Respiratory: REPORTS: Coughing. DENIES: Trouble Breathing - GASTROINTESTINAL Gastrointestinal: DENIES: Nausea, Patient vomiting, Diarrhea - REPRODUCTIVE Reproductive: DENIES: : - DERM Skin Color: Normal Skin Problems: None Past Medical History - General Information source: Patient - Social History Smoking Status: Current Every Day Smoker Chew tobacco use (# tins/day): No Frequency of alcohol use: None Drug Abuse: None Occupation: Foodservice Family History: CAD, DM, Hyperlipidemia, Hypertension, Malignancy Patient has suicidal ideation: No Patient has homicidal ideation: No Pulmonary Medical History: Reports: Hx Asthma Neurological Medical History: Reports: Hx Migraine Renal/ Medical History: Denies: Hx Peritoneal Dialysis Psychiatric Medical History: Reports: Hx Anxiety Past Surgical History: Reports: Hx Tonsillectomy - Immunizations Hx Diphtheria, Pertussis, Tetanus Vaccination: Yes Vertical Provider Document - CONSTITUTIONAL Agree With Documented VS: Yes Exam Limitations: No Limitations General Appearance: WD/WN, No Apparent Distress - INFECTION CONTROL TRAVEL OUTSIDE OF THE [place] IN LAST 30 DAYS: No - HEENT HEENT: Atraumatic, Normocephalic. negative: Pharyngeal Exudate, Pharyngeal Tenderness, Tympanic Membrane Red, Tympanic Membrane Bulging Notes: clear rhinorrhea - NECK Neck: Normal Inspection, Supple. negative: Lymphadenopathy-Left, Lymphadenopathy-Right - RESPIRATORY Respiratory: No Respiratory Distress, Wheezing - with cough. negative: Rhonchi - CARDIOVASCULAR Cardiovascular: Regular Rate, Regular Rhythm - BACK Back: Normal Inspection - MUSCULOSKELETAL/EXTREMETIES Musculoskeletal/Extremeties: NEVIN VEGA - NEURO Level of Consciousness: Awake, Alert, Appropriate Motor/Sensory: No Motor Deficit - DERM Integumentary: Warm, Dry, No Rash Course - Re-evaluation Re-evalutation: 08/27/19 Patient continues with occasional cough. Decreased wheezing bilaterally after nebulizer treatment. Respirations even unlabored. Chest x-ray reviewed, no concern for pneumonia or pneumothorax at this time. Discussed worsening symptoms that patient to return immediately for. Patient verbalized understanding and is agreeable with discharge plan of care at this time. - Vital Signs Vital signs: Temp Pulse Resp BP Pulse Ox 98.2 F 81 16 122/73 99 08/27/19 07:57 08/27/19 07:57 08/27/19 07:57 08/27/19 07:57 08/27/19 07:57 Discharge - Discharge Clinical Impression: Wheezing Upper respiratory infection Qualifiers: URI type: unspecified URI Qualified Code(s): J06.9 - Acute upper respiratory infection, unspecified Condition: Stable Disposition: HOME, SELF-CARE Instructions: Bronchitis With Bronchospasm (Wheezing) ([facility]), Steroid Medication Additional Instructions: Return immediately for any new or worsening symptoms Followup with your primary care provider, call tomorrow to make a followup appointment Prescriptions: Prednisone [Deltasone 10 mg Tablet] 10 mg PO ASDIR PRN #21 tablet PRN Reason: Guaifenesin/Pseudoephedrne HCl [Mucinex D ER 1,200-120 mg Tab] 1 each PO Q12 PRN #12 tab.er.12h PRN Reason: Inhaler,Assist Device,Accesory [Optichamber] 1 each MC Q4 PRN #1 each PRN Reason: Albuterol Sulfate [Proair Hfa Inhalation Aerosol 8.5 gm Mdi] 2 puff IH Q4 PRN #1 mdi PRN Reason: Forms: Return to Work
[2019-08-27 10:33] VITALS: BP 131/71
== END 2019-08-27 10:33 | disposition home or self-care (01) ==
LOC: ER 07:53
DX: J06.9 Acute upper respiratory infection, unspecified (principal); R06.2 Wheezing; R68.89 Other general symptoms and signs; F17.200 Nicotine dependence, unspecified, uncomplicated
CPT/HCPCS: 94640; 99283; 71045; J7512; J7620

== ENCOUNTER 2019-12-16 14:52 | Emergency (ER) | payer SELFPAY ==
--- NOTE | 2019-12-16 15:11 | ER Document Report ---
ED Medical Screen (RME) - General Stated Complaint: CHEST PAIN,HEADACHE,SORE THROAT Time Seen by Provider: 12/16/19 15:06 Mode of Arrival: Ambulatory Information source: Patient Notes: Patient is an otherwise healthy 29-year-old female presenting to the emergency department with right side pain and chest pain. Patient reports pain feels like a sharp stabbing pain and has been going on for 2 days now. She also reports 3- day history of headache, states it feels like a migraine. Patient denies any nausea, vomiting, diarrhea or fever. She does not note any association with food intake with the right side pain or chest pain. Abdomen soft, nontender, no CVA tenderness. No acute distress noted. I have greeted and performed a rapid initial assessment of this patient. A comprehensive ED assessment and evaluation of the patient, analysis of test results and completion of the medical decision making process will be conducted by additional ED providers. I have specifically instructed the patient or family members with the patient to immediately return to any nursing staff should anything change in the patient's condition or with their chief complaint. TRAVEL OUTSIDE OF THE [place] IN LAST 30 DAYS: No - Related Data Allergies/Adverse Reactions: No Known Allergies Allergy (Verified 08/27/19 07:57) Past Medical History - Social History Family history: Reviewed & Not Pertinent Pulmonary Medical History: Reports: Hx Asthma Neurological Medical History: Reports: Hx Migraine Renal/ Medical History: Denies: Hx Peritoneal Dialysis Psychiatric Medical History: Reports: Hx Anxiety Past Surgical History: Reports: Hx Tonsillectomy - Immunizations Hx Diphtheria, Pertussis, Tetanus Vaccination: Yes Physical Exam - Vital signs Vitals: Temp Pulse Resp BP Pulse Ox 98.2 F 77 20 128/83 H 100 12/16/19 14:59 12/16/19 14:59 12/16/19 14:59 12/16/19 14:59 12/16/19 14:59 Course - Vital Signs Vital signs: Temp Pulse Resp BP Pulse Ox 98.2 F 77 20 128/83 H 100 12/16/19 14:59 12/16/19 14:59 12/16/19 14:59 12/16/19 14:59 12/16/19 14:59
[2019-12-16] MEDS ORDERED: NORMAL SALINE 1000 ML 1,000 ML IV ONE (15:44)
[2019-12-16] MEDS ORDERED: DIPHENHYDRAMINE HCL 50 MG/ML VIAL IV ONE (15:45)
[2019-12-16] MEDS ORDERED: PROCHLORPERAZINE EDISYLATE INJ 10 MG/2 ML VIAL IV ONE (15:45)
--- NOTE | 2019-12-16 15:54 | ER Document Report ---
ED General <SUSHANT DENG - Last Filed: 12/16/19 18:43> - General Mode of Arrival: Ambulatory Information source: Patient TRAVEL OUTSIDE OF THE [place] IN LAST 30 DAYS: No - HPI Onset: Other - 3 days Onset/Duration: Persistent Quality of pain: Sharp Pain Level: 5 Associated symptoms: Chest pain, Nonproductive cough, Headache. denies: Productive cough, Diarrhea, Fever, Nausea, Vomiting, Rhinnorhea, Shortness of breath Exacerbated by: Other - Light sensitivity Relieved by: Denies Similar symptoms previously: No Recently seen / treated by doctor: No - Related Data Home Medications: albuterol prn <MACRINA BRITT - Last Filed: 12/17/19 08:12> - General Chief Complaint: Chest Pain Stated Complaint: CHEST PAIN,HEADACHE,SORE THROAT Time Seen by Provider: 12/16/19 15:06 Primary Care Provider: [facility] [Provider Group] - Follow up as needed [facility] [Provider Group] - Follow up as needed [facility] [Provider Group] - Follow up as needed [facility] [Provider Group] - Follow up as needed LOVE ROSA MD [NO [facility] MD] - Follow up as needed Notes: Patient presents with multiple complaints. Patient states she has had frontal headache pain into the bilateral temporal area for the past 3 days. Patient does report photophobia. Patient also complains of midsternal chest discomfort for the past 2 days that she describes as a sharp stabbing pain. Patient reports mild congestion and cough. Patient also reports right upper quadrant ab dominal tenderness for the past 2 days. Patient denies any fever, urinary symptoms, nausea vomiting or diarrhea. Patient denies any concerns about and is not on any control pills. Patient denies any recent travel. Denies any family history of early coronary artery disease. (MACRINA BRITT) - Related Data Allergies/Adverse Reactions: No Known Allergies Allergy (Verified 08/27/19 07:57) Past Medical History - General Information source: Patient - Social History Smoking Status: Never Smoker Frequency of alcohol use: None Drug Abuse: None Occupation: Call center Family History: CAD, DM, Hyperlipidemia, Hypertension, Malignancy Patient has suicidal ideation: No Patient has homicidal ideation: No Pulmonary Medical History: Reports: Hx Asthma Neurological Medical History: Reports: Hx Migraine Renal/ Medical History: Denies: Hx Peritoneal Dialysis Psychiatric Medical History: Reports: Hx Anxiety Past Surgical History: Reports: Hx Tonsillectomy - Immunizations Hx Diphtheria, Pertussis, Tetanus Vaccination: Yes <MACRINA BRITT - Last Filed: 12/17/19 08:12> Review of Systems - Review of Systems Constitutional: No symptoms reported EENT: No symptoms reported Cardiovascular: Chest pain. denies: Dyspnea, Syncope Respiratory: Cough. denies: Short of breath Gastrointestinal: Abdominal pain. denies: Diarrhea, Nausea, Vomiting Genitourinary: No symptoms reported. denies: Dysuria, Flank pain Female Genitourinary: No symptoms reported Musculoskeletal: No symptoms reported. denies: Back pain, Neck pain Skin: No symptoms reported. denies: Rash Hematologic/Lymphatic: No symptoms reported Neurological/Psychological: Headaches. denies: Weakness <MACRINA BRITT - Last Filed: 12/17/19 08:12> Physical Exam - General General appearance: Appears well, Alert In distress: None - HEENT Head: Normocephalic Eyes: Normal Conjunctiva: Normal Extraocular movements intact: Yes Pupils: PERRL Ears: Normal External canal: Normal Tympanic membrane: Serous effusion - Right Sinus: Normal Nasal: Normal Mouth/Lips: Normal Mucous membranes: Normal Pharynx: Normal. No: Erythema, Exudate, Tonsillar hypertrophy Neck: Normal, Supple. No: Brudzinski, Kernig's, Lymphadenopathy, Meningismus - Respiratory Respiratory status: No respiratory distress Chest status: Tender Breath sounds: Nonproductive cough. No: Rales, Rhonchi, Stridor, Wheezing Chest palpation: Normal - Cardiovascular Rhythm: Regular Heart sounds: S1 appreciated, S2 appreciated - Abdominal Inspection: Normal Distension: No distension Bowel sounds: Normal Tenderness: Tender - Right upper quadrant. No: Guarding Organomegaly: No organomegaly - Back Back: Normal, Nontender. No: CVA tenderness - Extremities General upper extremity: Normal inspection, Normal strength General lower extremity: Normal inspection, Normal strength. No: Edema - Neurological Neuro grossly intact: Yes Cognition: Normal [place] Coma Scale Eye Opening: Spontaneous [place] Coma Scale Verbal: Oriented Bár[place] Coma Scale Motor: Obeys Commands [place] Coma Scale Total: 15 - Psychological Associated symptoms: Normal affect, Normal mood - Skin Skin Temperature: Warm Skin Moisture: Dry Skin Color: Normal <MACRINA BRITT - Last Filed: 12/17/19 08:12> - Vital signs Vitals: Temp Pulse Resp BP Pulse Ox 98.2 F 77 20 128/83 H 100 12/16/19 14:59 12/16/19 14:59 12/16/19 14:59 12/16/19 14:59 12/16/19 14:59 Course - Laboratory Result Diagrams: 12/16/19 15:51 12/16/19 16:50 <SUSHANT DENG - Last Filed: 12/16/19 18:43> - Laboratory Result Diagrams: 12/16/19 15:51 12/16/19 16:50 - Diagnostic Test Radiology reviewed: Reports reviewed - EKG Interpretation by Me EKG shows normal: Sinus rhythm Rate: Normal When compared to previous EKG there are: No significant change <MACRINA BRITT - Last Filed: 12/17/19 08:12> - Re-evaluation Re-evalutation: 12/16/19 18:43 Patient states she is having no chest pain no abdominal pain but she does still have a headache of a 1 out of 5. She states she would appreciate a prescription for the Compazine and ibuprofen. She states she does not have a primary care doctor and would like the name and number of a local primary doctor. I have informed her I will give her the name and number of local doctors and a neurologist if she continues to have a headache. Patient states she is feeling much better and is ready to go home. Will discharge patient home. She is very low risk for cardiac event. (SUSHANT DENG) 12/16/19 17:16 Patient reports headache pain is down to 3 out of 5 scale. Patient states that abdominal pain is improved some although chest pain is still present. Bedside report and handoff given to Joi Deng BPO SPECIALIST (MACRINA BRITT) - Vital Signs Vital signs: Temp Pulse Resp BP Pulse Ox 98.2 F 77 16 125/77 100 12/16/19 14:59 12/16/19 14:59 12/16/19 18:58 12/16/19 18:58 12/16/19 18:58 - Laboratory Laboratory results interpreted by me: 12/16/19 12/16/19 12/16/19 15:51 15:51 16:50 Hct 35.7 L Plt Count 484 H Sodium 136.2 L Urine Urobilinogen 2.0 H - EKG Interpretation by Me Additional EKG results interpreted by me: 12/16/19 15:[address] elevation, QTc 437 (MACRINA BRITT) Discharge <SUSHANT DENG - Last Filed: 12/16/19 18:43> <LORENZAMACRINA - Last Filed: 12/17/19 08:12> - Discharge Clinical Impression: Abdominal pain Qualifiers: Abdominal location: right upper quadrant Qualified Code(s): R10.11 - Right upper quadrant pain Chest pain Qualifiers: Chest pain type: unspecified Qualified Code(s): R07.9 - Chest pain, unspecified Headache Qualifiers: Headache type: unspecified Headache chronicity pattern: acute headache Intractability: not intractable Qualified Code(s): R51 - Headache Condition: Stable Disposition: HOME, SELF-CARE Additional Instructions: Abdominal Pain There are many causes of abdominal pain. Pain can mean a serious problem requiring surgery (such as appendicitis). It can also be an innocent problem that goes away on its own (such as a viral infection). Often, time must pass to determine the cause of pain. The physician does not feel that hospitalization is necessary, at present. Things may change within the next 24 hours. Call the doctor or come back for re- examination if any problems occur, such as: (1) Pain that becomes more severe, steady, or becomes concentrated in one specific area. Also, pain that is more severe with movement or coughing. (2) Vomiting that persists or becomes more frequent. (3) Blood in the vomitus, urine, or bowel movements. Blood in the stool may have a tarry or black appearance. (4) Shaking chills or fever greater than 100 degrees F. (5) The abdomen becomes more distended or swollen. (6) Bowel movements cease. (7) Failure to improve as expected. CHEST PAIN OF UNCLEAR CAUSE: The exact cause of your chest pain isn't clear. Fortunately, there is no evidence of a dangerous medical condition. Further testing may be required to find the source of the pain. Most often, we find that this pain is coming from the chest wall -- the muscles or rib joints in the chest. But chest pain can come from the lung and lung lining, the esophagus, the heart valves or heart lining, and even the stomach or gallbladder. Rest. Eat lightly until the pain is gone. We may prescribe medicine for pain and inflammation. You should call the physician immediately if the pain radiates to the shoul marybel, jaw or arms; if you start to run a fever or develop a cough; or if you develop shortness of breath, or other new or alarming symptoms. NORMAL EXAM AND WORKUP: At this time, your examination and workup show no significant abnormality. No significant abnormal physical findings were noted. All laboratory, EKG, and imaging (x-ray, CT scans, ultrasound) studies that were ordered show no s ignificant abnormality. Although your examination and all studies that were ordered showed no s ignificant abnormal finding, there are no examinations and no studies that are 100% accurate. There is always the possibility that some abnormality could exist and not be detected with physical examination or within the limits and capabilities of laboratory and other studies. You should return or follow up as you were instructed on your visit today for further evaluation if your symptoms do not resolve. HEADACHE: The physician does not feel that the headache you are experiencing has a serious underlying cause. Most headaches are due to emotional stress, with resultant muscle tension (tension headache). Occasionally, headaches are secondary to changes in the blood vessels of the scalp (vascular headache and migraine headache). Sometimes, a headache is the first symptom of another developing illness, such as a viral infection. You have no evidence of stroke, bleeding, meningitis, or other serious cause of your headache. The treatment of headaches varies with the severity and cause of the pain. Not all headaches need pain shots. In fact, there is evidence that using narcotics for headaches may make them worse in the long run. The physician will determine the therapy that's in your best interest. If you develop a fever, if the headache is different from any you've previously experienced, or if the headache progressively worsens, then call your physician at once or go to the emergency room. USE OF DIPHENHYDRAMINE: Diphenhydramine (Benadryl) is an antihistamine and has been recommended to help treat your headache and to prevent side effects of other medications used to treat headaches. The medication can be repeated four times daily. Rosario León (12.5 mg/tsp) 25 mg pill adult 1-2 tabs Antihistamines may cause drowsiness, especially with the first dose. Do not operate machinery or drive while under the effects of the medication. Do not combine the medication with alcohol, or with any other medication without talking to your doctor. INTRAVENOUS COMPAZINE FOR HEADACHE: You have received therapy for headaches, using intravenous Compazine. This treatment is dramatically successful in relieving the headache in about 50 percent of cases. When it works, it provides a rapid method of eliminating the headache without resorting to narcotics (and the problems associated with them). Most patients still feel fully alert after the Compazine, but others may be slightly drowsy. It's best not to drive or work with machinery for six to eight hours. Do not take alcohol or other medication unless you discuss it with the doctor. If you develop tightness and spasms in your muscles, especially the neck and tongue, you should return. This is a side effect which can be treated. TORADOL INJECTION: You have been given an injection of ketorolac tromethamine (Toradol). This is an excellent, safe drug for pain control. It also has potent antiinflamm atory action. You should have significant pain relief within about one hour. Toradol is not addicting and is non-sedating. It does not interfere with driving or work. Call or return if you develop itching, hives, shortness of breath, or rash. Intravenous (IV) Fluids As part of your care today, you received intravenous (IV) fluids. IV fluids are administered to patients who are dehydrated or to those who have certain chemical (electrolyte) abnormalities that need correcting. You state you have no pain except for a 1/5 headache at this time. You were treated with Compazine, Benadryl, and Toradol IV with IV fluids. She states she feels much better and are ready to go home. Your chest x-ray was negative, your upper abdominal ultrasound did not show any acute processes. I have given you a copy of your ultrasound your x-ray and your lab work. I have also given you the name and number of several doctors and a neurologist to follow-up with if you continue to have any further pain or discomfort. It is important that you call someone to follow-up in the next 3 to 5 days. You are always very welcome to return if you have any acute return of any of your symptoms. FOLLOW-UP CARE: If you have been referred to a physician for follow-up care, call the physicians office for an appointment as you were instructed or within the next two days. If you experience worsening or a significant change in your symptoms, notify the physician immediately or return to the Emergency Department at any time for re-evaluation. Prescriptions: Ibuprofen [Motrin 600 mg Tablet] 600 mg PO Q8HP PRN #14 tablet PRN Reason: For Headache Prochlorperazine Maleate [Compazine 10 mg Tablet] 10 mg PO ASDIR PRN #10 tablet PRN Reason: Forms: Elevated Blood Pressure, Return to Work Referrals: [facility] [Provider Group] - Follow up as needed [facility] [Provider Group] - Follow up as needed [facility] [Provider Group] - Follow up as needed [facility] [Provider Group] - Follow up as needed LOVE ROSA MD [NO LOCAL MD] - Follow up as needed
[2019-12-16 16:06] LABS: ABSOLUTE BASOPHILS # (AUTO) 0.1 10^3/uL (0.0-0.2); ABSOLUTE EOSINOPHILS # (AUTO) 0.1 10^3/uL (0.0-0.6); ABSOLUTE LYMPHOCYTES (AUTO) 2.1 10^3/uL (0.5-4.7); ABSOLUTE MONOCYTES (AUTO) 0.5 10^3/uL (0.1-1.4); ABSOLUTE NEUT (AUTO) 3.6 10^3/uL (1.7-8.2); BASOPHILS % (AUTO) 1.1 % (0-2); EOSINOPHILS % (AUTO) 1.8 % (0-6); HEMATOCRIT 35.7 % (36.0-47.0); HEMOGLOBIN 12.4 g/dL (12.0-15.5); LYMPHOCYTES % (AUTO) 32.6 % (13-45); MEAN CORPUSCULAR HEMOGLOBIN 28.4 pg (27.0-33.4); MEAN CORPUSCULAR HGB CONC 34.7 g/dL (32.0-36.0); MEAN CORPUSCULAR VOLUME 82 fl (80-97); MONOCYTES % (AUTO) 7.3 % (3-13); PLATELET COUNT 484 10^3/uL (150-450); RED BLOOD COUNT 4.37 10^6/uL (3.72-5.28); SEGMENTED NEUTROPHILS % (AUTO) 57.2 % (42-78); TOTAL CELLS COUNTED % (AUTO) 100 %; WHITE BLOOD COUNT 6.3 10^3/uL (4.0-10.5)
[2019-12-16 16:18] LABS: AMORPHOUS SEDIMENT,URINE TRACE /HPF; APPEARANCE,URINE CLOUDY; BILIRUBIN,URINE NEGATIVE (NEGATIVE); COLOR,URINE YELLOW; GLUCOSE, URINE NEGATIVE (NEGATIVE); KETONES,URINE NEGATIVE (NEGATIVE); LEUKOCYTE ESTERASE,URINE NEGATIVE (NEGATIVE); NITRITE,URINE NEGATIVE (NEGATIVE); PROTEIN,URINE NEGATIVE (NEGATIVE); URINE SPECIFIC GRAVITY 1.016
--- NOTE | 2019-12-16 16:22 | RADIOLOGY REPORT (SQ) ---
EXAM DESCRIPTION: CHEST 2 VIEWS IMAGES COMPLETED DATE/TIME: 12/16/2019 4:10 pm REASON FOR STUDY: cough, cp COMPARISON: None. EXAM PARAMETERS: NUMBER OF VIEWS: two views TECHNIQUE: Digital Frontal and Lateral radiographic views of the chest acquired. RADIATION DOSE: NA LIMITATIONS: none FINDINGS: LUNGS AND PLEURA: No opacities, masses or pneumothorax. No pleural effusion. MEDIASTINUM AND HILAR STRUCTURES: No masses or contour abnormalities. HEART AND VASCULAR STRUCTURES: Heart normal size. No evidence for failure. BONES: No acute findings. HARDWARE: None in the chest. OTHER: No other significant finding. IMPRESSION: NO ACUTE RADIOGRAPHIC FINDING IN THE CHEST. TECHNICAL DOCUMENTATION: JOB ID: [id number] 2010 [employer]- All Rights Reserved Reading location - IP/workstation name: [email or web address]
--- NOTE | 2019-12-16 16:55 | RADIOLOGY REPORT (SQ) ---
EXAM DESCRIPTION: U/S ABDOMEN LIMITED W/O DOP IMAGES COMPLETED DATE/TIME: 12/16/2019 4:39 pm REASON FOR STUDY: RUQ pain COMPARISON: None. TECHNIQUE: Dynamic and static grayscale images acquired of the abdomen and recorded on PACS. Additio nal selected color Doppler and spectral images recorded. LIMITATIONS: Gallbladder contracted FINDINGS: PANCREAS: No masses. Visualized pancreatic duct normal caliber. LIVER: No masses. Echotexture normal. LIVER VASCULATURE: Normal directional flow of the main portal vein and hepatic veins. GALLBLADDER: No stones. Normal wall thickness. No pericholecystic fluid. ULTRASOUND-DETECTED LATHAM'S SIGN: Negative. INTRAHEPATIC DUCTS AND COMMON DUCT: CBD and intrahepatic ducts normal caliber. No filling defects. INFERIOR VENA CAVA: Normal flow. AORTA: No aneurysm. RIGHT KIDNEY: Normal size. Normal echogenicity. No solid or suspicious masses. No hydronephrosis. No calcifications. PERITONEAL AND RIGHT PLEURAL SPACE: No ascites or effusions. OTHER: No other significant findings. IMPRESSION: NORMAL RIGHT UPPER QUADRANT ULTRASOUND. TECHNICAL DOCUMENTATION: JOB ID: [id number] 2010 [employer]- All Rights Reserved Reading location - IP/workstation name: [email or web address]
[2019-12-16] MEDS ORDERED: KETOROLAC TROMETHAMINE INJ/PF 30 MG/1 ML SDV IV ONE (17:16)
[2019-12-16 17:34] LABS: ALBUMIN 4.2 g/dL (3.5-5.0); ALKALINE PHOSPHATASE 90 U/L (38-126); ANION GAP 7 (5-19); ASPARTATE AMINO TRANSFERASE 22 U/L (14-36); BILIRUBIN,DIRECT 0.3 mg/dL (0.0-0.4); BILIRUBIN,TOTAL 0.3 mg/dL (0.2-1.3); BLOOD UREA NITROGEN 13 mg/dL (7-20); CALCIUM 9.7 mg/dL (8.4-10.2); CARBON DIOXIDE 23 mmol/L (22-30); CHLORIDE 106 mmol/L (98-107); GLUCOSE 75 mg/dL (75-110); POTASSIUM 4.2 mmol/L (3.6-5.0); TOTAL PROTEIN 7.1 g/dL (6.3-8.2)
[2019-12-16 19:03] VITALS: BP 125/77
--- NOTE | 2019-12-16 20:00 | EKG REPORT ---
SEVERITY:- BORDERLINE ECG - SINUS RHYTHM PROBABLE LEFT ATRIAL ABNORMALITY : Confirmed by: Jacki Roland MD 16-Dec-2019 20:00:17
== END 2019-12-16 19:09 | disposition home or self-care (01) ==
LOC: ER 14:52
DX: J02.9 Acute pharyngitis, unspecified (principal); R10.11 Right upper quadrant pain; R07.9 Chest pain, unspecified; R51 Headache; H53.149 Visual discomfort, unspecified; R05 Cough
CPT/HCPCS: 93005; 99285; 96361; 96374; 96375; 36415; 83690; 84703; 85025; 80053; 81001; 84484; 71046; 76705; 93010; J1200; J1885; J0780; J7030

== ENCOUNTER 2020-05-19 18:18 | Emergency (ER) | payer MEDICAID ==
[2020-05-19] MEDS ORDERED: METOCLOPRAMIDE HCL INJ/PF 10 MG/2 ML SDV IV ONE ×2 (18:30→20:45)
[2020-05-19] MEDS ORDERED: DIPHENHYDRAMINE HCL 50 MG/ML VIAL IV ONE ×2 (18:30→20:45)
[2020-05-19] MEDS ORDERED: NORMAL SALINE 1000 ML 1,000 ML IV ONE (18:30)
--- NOTE | 2020-05-19 18:32 | ER Document Report ---
ED Medical Screen (RME) - General Chief Complaint: Abdominal Pain Stated Complaint: ABDOMINAL PAIN/MIGRAINE Time Seen by Provider: 05/19/20 18:26 Primary Care Provider: GABBY BORJAS CNM [Primary Care Provider] - Follow up as needed Information source: Patient Notes: Patient presents complaining of left lower quadrant pain for the past 2 days. Patient complains of headache with nausea. No vomiting or diarrhea. Patient denies any urinary symptoms. Patient does complain of dental pain. Patient is currently 16 weeks G1, P0. Patient denies any vaginal bleeding or discharge. I have greeted and performed a rapid initial assessment of this patient. A comprehensive ED assessment and evaluation of the patient, analysis of test results and completion of the medical decision making process will be conducted by additional ED providers. TRAVEL OUTSIDE OF THE [place] IN LAST 30 DAYS: No - Related Data Allergies/Adverse Reactions: No Known Allergies Allergy (Verified 05/19/20 18:25) Past Medical History - Social History Family history: Reviewed & Not Pertinent Pulmonary Medical History: Reports: Hx Asthma Neurological Medical History: Reports: Hx Migraine Renal/ Medical History: Denies: Hx Peritoneal Dialysis Psychiatric Medical History: Reports: Hx Anxiety Past Surgical History: Reports: Hx Tonsillectomy - Immunizations Hx Diphtheria, Pertussis, Tetanus Vaccination: Yes Physical Exam - Vital signs Vitals: Temp Pulse Resp BP Pulse Ox 98.9 F 97 18 132/72 H 100 05/19/20 18:24 05/19/20 18:24 05/19/20 18:24 05/19/20 18:24 05/19/20 18:24 - Abdominal Inspection: Gravid female Tenderness: Tender - Left lower quadrant tenderness Course - Vital Signs Vital signs: Temp Pulse Resp BP Pulse Ox 98.9 F 97 18 132/72 H 100 05/19/20 18:24 05/19/20 18:24 05/19/20 18:24 05/19/20 18:24 05/19/20 18:24 Doctor's Discharge - Discharge Referrals: GABBY BORJAS CNM [Primary Care Provider] - Follow up as needed
[2020-05-19 18:57] LABS: ABSOLUTE BASOPHILS # (AUTO) 0.1 10^3/uL (0.0-0.2); ABSOLUTE EOSINOPHILS # (AUTO) 0.1 10^3/uL (0.0-0.6); ABSOLUTE LYMPHOCYTES (AUTO) 1.9 10^3/uL (0.5-4.7); ABSOLUTE MONOCYTES (AUTO) 0.9 10^3/uL (0.1-1.4); ABSOLUTE NEUT (AUTO) 9.4 10^3/uL (1.7-8.2); BASOPHILS % (AUTO) 0.7 % (0-2); EOSINOPHILS % (AUTO) 0.8 % (0-6); HEMATOCRIT 29.6 % (36.0-47.0); HEMOGLOBIN 10.6 g/dL (12.0-15.5); LYMPHOCYTES % (AUTO) 15.6 % (13-45); MEAN CORPUSCULAR HEMOGLOBIN 29.2 pg (27.0-33.4); MEAN CORPUSCULAR HGB CONC 35.8 g/dL (32.0-36.0); MEAN CORPUSCULAR VOLUME 81 fl (80-97); MONOCYTES % (AUTO) 7.2 % (3-13); PLATELET COUNT 394 10^3/uL (150-450); RED BLOOD COUNT 3.63 10^6/uL (3.72-5.28); RED CELL DISTRIBUTION WIDTH 14.4 % (11.5-14.0); SEGMENTED NEUTROPHILS % (AUTO) 75.7 % (42-78); TOTAL CELLS COUNTED % (AUTO) 100 %; WHITE BLOOD COUNT 12.4 10^3/uL (4.0-10.5)
[2020-05-19 19:06] LABS: APPEARANCE,URINE SLIGHTLY-CLOUDY; BILIRUBIN,URINE NEGATIVE (NEGATIVE); COLOR,URINE YELLOW; GLUCOSE, URINE NEGATIVE (NEGATIVE); KETONES,URINE NEGATIVE (NEGATIVE); LEUKOCYTE ESTERASE,URINE TRACE (NEGATIVE); NITRITE,URINE NEGATIVE (NEGATIVE); PROTEIN,URINE NEGATIVE (NEGATIVE); URINE SPECIFIC GRAVITY 1.013; UROBILINOGEN,URINE NEGATIVE mg/dL (<2.0)
[2020-05-19 19:21] LABS: ALKALINE PHOSPHATASE 63 U/L (38-126); ANION GAP 9 (5-19); ASPARTATE AMINO TRANSFERASE 15 U/L (14-36); BILIRUBIN,DIRECT 0.2 mg/dL (0.0-0.4); BILIRUBIN,TOTAL 0.2 mg/dL (0.2-1.3); BLOOD UREA NITROGEN 7 mg/dL (7-20); CALCIUM 10.4 mg/dL (8.4-10.2); CARBON DIOXIDE 22 mmol/L (22-30); CHLORIDE 106 mmol/L (98-107); GLUCOSE 84 mg/dL (75-110); POTASSIUM 4.2 mmol/L (3.6-5.0); TOTAL PROTEIN 6.9 g/dL (6.3-8.2)
[2020-05-19] MEDS ORDERED: ACETAMINOPHEN 325 MG TABLET PO ONE (20:34)
[2020-05-19] MEDS ORDERED: PENICILLIN V POTASSIUM 500 MG TABLET PO ONE (20:34)
--- NOTE | 2020-05-19 20:35 | ER Document Report ---
ED General - General Chief Complaint: Abdominal Pain Stated Complaint: ABDOMINAL PAIN/MIGRAINE Time Seen by Provider: 05/19/20 18:26 Primary Care Provider: [facility] [Provider Group] - Follow up as needed GABBY BORJAS CNM [Primary Care Provider] - Follow up as needed Mode of Arrival: Ambulatory Information source: Patient Notes: 29-year-old female 1 presents to the emergency room complaining of nausea, abdominal pain and headache for the past 2 days. Describes the abdominal pain as lower and sharp but intermittent. States she has been taking Tylenol without relief. No medications for nausea. Did not take any medications today. States she also started with some left lower dental pain yesterday. Denies any trauma or injury. No fevers. Has been seen by the health department for her OB care. States she has had normal ultrasounds. Denies any vaginal bleeding. No vaginal discharge. TRAVEL OUTSIDE OF THE [place] IN LAST 30 DAYS: No - Related Data Allergies/Adverse Reactions: No Known Allergies Allergy (Verified 05/19/20 18:25) Past Medical History - General Information source: Patient - Social History Smoking Status: Never Smoker Frequency of alcohol use: None Drug Abuse: None Family History: CAD, DM, Hyperlipidemia, Hypertension, Malignancy Patient has homicidal ideation: No Pulmonary Medical History: Reports: Hx Asthma Neurological Medical History: Reports: Hx Migraine Renal/ Medical History: Denies: Hx Peritoneal Dialysis Psychiatric Medical History: Reports: Hx Anxiety Past Surgical History: Reports: Hx Tonsillectomy - Immunizations Hx Diphtheria, Pertussis, Tetanus Vaccination: Yes Review of Systems - Review of Systems Constitutional: No symptoms reported EENT: Dental problem Cardiovascular: No symptoms reported Respiratory: No symptoms reported Gastrointestinal: Abdominal pain, Nausea. denies: Vomiting Genitourinary: denies: No symptoms reported Female Genitourinary: . denies: Vaginal discharge, Vaginal bleeding Skin: No symptoms reported Neurological/Psychological: Headaches -: Yes All other systems reviewed and negative Physical Exam - Vital signs Vitals: Temp Pulse Resp BP Pulse Ox 98.9 F 97 18 132/72 H 100 05/19/20 18:24 05/19/20 18:24 05/19/20 18:24 05/19/20 18:24 05/19/20 18:24 - General General appearance: Appears well, Alert In distress: Mild - HEENT Head: Normocephalic, Atraumatic Eyes: Normal Pupils: PERRL Ears: Normal External canal: Normal Tympanic membrane: Normal Sinus: Normal Nasal: Normal Mouth/Lips: Other - Widespread dental decay. There is a nonfluctuant abscess noted to the left lower gumline. It is erythematous and tender to palpation. But no active discharge or draining noted. Mucous membranes: Normal Pharynx: Normal Neck: Normal - Respiratory Respiratory status: No respiratory distress Chest status: Nontender Breath sounds: Normal Chest palpation: Normal - Cardiovascular Rhythm: Regular Heart sounds: Normal auscultation Murmur: No - Abdominal Inspection: Normal Distension: No distension Bowel sounds: Normal Tenderness: Nontender Organomegaly: No organomegaly - Back Back: Normal, Nontender. No: CVA tenderness, Vertebra tenderness - Neurological Neuro grossly intact: Yes Cognition: Normal Orientation: AAOx4 [place]ár[place] Coma Scale Eye Opening: Spontaneous [place] Coma Scale Verbal: Oriented [place]ár[place] Coma Scale Motor: Obeys Commands [place] Coma Scale Total: 15 Speech: Normal Motor strength normal: LUE, RUE, LLE, RLE Sensory: Normal - Skin Skin Temperature: Warm Skin Moisture: Dry Skin Color: Normal Course - Re-evaluation Re-evalutation: 05/19/20 22:40 Patient is currently resting comfortably she is pain-free at this time. Pain-fr ee on exam. Headache and abdominal pain have resolved. She is afebrile. She is nontoxic-appearing, she is able to tolerate p.o. fluids. Reviewed all lab and ultrasound results with patient. Counseled to take Tylenol as needed for pain. Antibiotics as prescribed for dental abscess. Encouraged to follow-up outpatient with a dentist as soon as possible. Continue with your current OB care at the health department. Patient was given strict return to the emergency room guidelines. Return for any new or worsening symptoms. All questions were answered. Patient verbalized understanding and agrees with plan of care. 05/19/20 22:41 - Vital Signs Vital signs: Temp Pulse Resp BP Pulse Ox 98.9 F 97 18 132/72 H 100 05/19/20 18:24 05/19/20 18:24 05/19/20 18:24 05/19/20 18:24 05/19/20 18:24 - Laboratory Result Diagrams: 05/19/20 18:38 09/12/20 18:38 Laboratory results interpreted by me: 05/19/20 05/19/20 05/19/20 18:38 18:38 18:38 WBC 12.4 H RBC 3.63 L Hgb 10.6 L Hct 29.6 L RDW 14.4 H Absolute Neuts (auto) 9.4 H Sodium 136.5 L Creatinine 0.45 L Calcium 10.4 H Urine Blood SMALL H Ur Leukocyte Esterase TRACE H - Diagnostic Test Radiology reviewed: Reports reviewed Discharge - Discharge Clinical Impression: Abdominal pain during in second trimester, Nausea, Dental abscess Headache Qualifiers: Headache type: unspecified Headache chronicity pattern: acute headache Intractability: not intractable Qualified Code(s): R51 - Headache Condition: Stable Disposition: HOME, SELF-CARE Instructions: Antinausea Medication ([facility]), Dental Infection or Abscess ([facility]), Headache ([facility]), Nausea or Vomiting, Nonspecific ([facility]), Pelvic Pain in and Round Ligament Pain ([facility]) Additional Instructions: Tylenol as needed for pain. Zofran as needed for nausea. Antibiotics as prescribed. Outpatient follow-up with your [facility] and a dentist as discussed. Return to the emergency room for any new or worsening symptoms. Prescriptions: Penicillin V Potassium [Penicillin Vk 500 mg Tablet] 500 mg PO QID #40 tablet Ondansetron [Zofran Odt 4 mg Tablet] 1 tab PO Q4H PRN #15 tab.rapdis PRN Reason: For Nausea/Vomiting Referrals: GABBY BORJAS CNM [Primary Care Provider] - Follow up as needed [facility] [Provider Group] - Follow up as needed
--- NOTE | 2020-05-19 22:30 | RADIOLOGY REPORT (SQ) ---
EXAM DESCRIPTION: US FOLLOW UP COMPLETED DATE/TME: 05/19/2020 18:30 CLINICAL HISTORY: 29 years, Female, LLQ pain COMPARISON: Obstetrical ultrasound 04/10/2020 TECHNIQUE: LIMITATIONS: None. FINDINGS: There is a live 16 week 6 day +/- 1 week IUP. There has been appropriate growth of the fetus, as compared with the prior ultrasound. cardiac activity was measured at 153 bpm. The placenta is posterior in location, with no evidence of abruption or previa. There is a normal amount of amniotic fluid. The cervix measures 3.9 cm in length and is closed. There is no gross adnexal mass or free fluid. IMPRESSION: Unremarkable IUP. copyright 2010 [employer]- All Rights Reserved
[2020-05-19 23:28] VITALS: BP 134/78
== END 2020-05-19 23:32 | disposition home or self-care (01) ==
LOC: ER 18:18
DX: O26.892 Other specified pregnancy related conditions, second trimester (principal); K04.7 Periapical abscess without sinus; R10.9 Unspecified abdominal pain; R11.0 Nausea; R51 Headache; Z3A.16 16 weeks gestation of pregnancy
CPT/HCPCS: 99285; 96361; 96374; 96375; 36415; 85025; 80053; 81001; 76805; J3490 ×2; J1200; J2765; J7030

== ENCOUNTER 2020-07-03 19:43 | Outpatient (CLI) | payer MEDICAID ==
[2020-07-03 20:20] LABS: AMORPHOUS SEDIMENT,URINE TRACE /HPF; APPEARANCE,URINE SLIGHTLY-CLOUDY; BILIRUBIN,URINE NEGATIVE (NEGATIVE); COLOR,URINE STRAW; GLUCOSE, URINE NEGATIVE (NEGATIVE); KETONES,URINE NEGATIVE (NEGATIVE); LEUKOCYTE ESTERASE,URINE TRACE (NEGATIVE); NITRITE,URINE NEGATIVE (NEGATIVE); PROTEIN,URINE NEGATIVE (NEGATIVE); URINE SPECIFIC GRAVITY 1.002; UROBILINOGEN,URINE NEGATIVE mg/dL (<2.0)
[2020-07-03 20:33] LABS: URINE AMPHETAMINES SCREEN NEGATIVE; URINE BARBITURATES SCREEN NEGATIVE; URINE BENZODIAZEPINES SCREEN NEGATIVE; URINE COCAINE SCREEN NEGATIVE; URINE MARIJUANA (THC) SCREEN NEGATIVE; URINE METHADONE SCREEN NEGATIVE; URINE PHENCYCLIDINE SCREEN NEGATIVE
== END 2020-07-03 21:04 | disposition home or self-care (01) ==
LOC: LC 19:43
PROVIDERS: ATTEND Obstetrics & Gynecology Gynecology
DX: O26.892 Other specified pregnancy related conditions, second trimester (principal); M54.9 Dorsalgia, unspecified; Z3A.23 23 weeks gestation of pregnancy
CPT/HCPCS: 80307; 81001

== ENCOUNTER 2020-07-11 18:19 | Emergency (ER) | payer MEDICAID ==
[2020-07-11] MEDS ORDERED: LIDOCAINE 5% (700 MG) TRANSDERMAL ADH..PATCH TP ONE (18:54)
[2020-07-11] MEDS ORDERED: GUAIFENESIN/D-METHORPHAN (200-20 MG) SYRUP 10 ML PO ONE (18:56)
--- NOTE | 2020-07-11 18:58 | EKG REPORT ---
SEVERITY:- BORDERLINE ECG - SINUS RHYTHM PROBABLE LEFT ATRIAL ABNORMALITY : Confirmed by: Jimmie Garcia MD 11-Jul-2020 18:58:02
--- NOTE | 2020-07-11 19:00 | ER Document Report ---
ED General - General Chief Complaint: Chest Pain Stated Complaint: SOB/COUGH/CONGESTION/CHEST PAIN Time Seen by Provider: 07/11/20 18:40 Primary Care Provider: GABBY BORJAS CNM [NO LOCAL MD] - Follow up as needed TRAVEL OUTSIDE OF THE [place] IN LAST 30 DAYS: No - HPI Notes: 29-year-old female presents with a cough. Patient states that she developed a cough productive of a yellow "cold" today, she also has some congestion. States that the lower portion of her chest hurts with coughing and with pushing the area. Symptoms started today when she was at work. She has taken Tylenol without relief of her symptoms. She denies any known sick contacts. No abdominal pain, vomiting, diarrhea or dysuria. Patient is 6 months . - Related Data Allergies/Adverse Reactions: No Known Allergies Allergy (Verified 07/11/20 19:03) Past Medical History - Social History Smoking Status: Unknown if Ever Smoked Family History: CAD, DM, Hyperlipidemia, Hypertension, Malignancy Pulmonary Medical History: Reports: Hx Asthma Neurological Medical History: Reports: Hx Migraine Renal/ Medical History: Denies: Hx Peritoneal Dialysis Psychiatric Medical History: Reports: Hx Anxiety Past Surgical History: Reports: Hx Tonsillectomy - Immunizations Hx Diphtheria, Pertussis, Tetanus Vaccination: Yes Review of Systems - Review of Systems Constitutional: denies: Fever EENT: Nose congestion Cardiovascular: See HPI Respiratory: Cough, Hurts to breathe. denies: Short of breath Gastrointestinal: denies: Vomiting Genitourinary: denies: Dysuria Female Genitourinary: No symptoms reported Musculoskeletal: No symptoms reported Skin: No symptoms reported Hematologic/Lymphatic: No symptoms reported Neurological/Psychological: No symptoms reported Physical Exam - Vital signs Vitals: Temp Pulse Resp BP Pulse Ox 98.6 F 107 H 18 129/83 H 100 07/11/20 18:36 07/11/20 18:36 07/11/20 18:36 07/11/20 18:36 07/11/20 18:36 - General General appearance: Appears well, Alert In distress: None - HEENT Head: Normocephalic, Atraumatic Extraocular movements intact: Yes Pupils: PERRL Nasal: Other - Nasal mucosal edema Mucous membranes: Moist Neck: Supple - Respiratory Chest status: Tender - Bilateral parasternal Breath sounds: Normal, Nonproductive cough - Cardiovascular Rhythm: Regular Heart sounds: Normal auscultation Murmur: No - Abdominal Inspection: Gravid female Bowel sounds: Normal Tenderness: Nontender - Extremities General upper extremity: Normal ROM General lower extremity: Normal ROM. No: Edema - Neurological Neuro grossly intact: Yes Cognition: Normal Orientation: AAOx4 - Psychological Associated symptoms: Normal affect - Skin Skin Temperature: Warm Course - Re-evaluation Re-evalutation: 29-year-old female at 6 months gestation here with nasal congestion and pleuritic chest pain, nonproductive cough. On exam patient is well-appearing, nontoxic, afebrile. She has some nasal mucosal edema and sounds congested. Nonproductive cough, lungs are clear, no hypoxia. She does have bilateral parasternal tenderness. Suspect that patient has viral URI with associated costochondral pain versus pleuritic pain. Would not suspect cardiac etiology at this time, EKG is nonischemic. Will obtain flu and Covid swabs. Check chest x- ray to ensure that no consolidation is present. Will give lidocaine patch and Robitussin for her symptoms. 07/11/20 19:36 No consolidation on chest x-ray 07/11/20 20:18 Flu negative 07/11/20 20:35 Bedside ultrasound demonstrates +FHT and movement. Patient updated home results. Discussed with her that Covid swab results are pending, she is instructed to stay home until results obtained. Discussed continued symptomatic care at home. Patient states that she called the nursing line and was told that she would have a prescription for Z-Johnson, I discussed with patient that antibiotics are not indicated at this time. Return precautions given, stable at time of discharge. - Vital Signs Vital signs: Temp Pulse Resp BP Pulse Ox 98.6 F 107 H 18 129/83 H 100 07/11/20 18:36 07/11/20 18:36 07/11/20 18:36 07/11/20 18:36 07/11/20 18:36 - Diagnostic Test Radiology reviewed: Image reviewed, Reports reviewed - EKG Interpretation by Me Additional EKG results interpreted by me: EKG is interpreted by me. Sinus rhythm, rate 92. Narrow QRS, QTC within normal limits. No acute ST changes. Discharge - Discharge Clinical Impression: Acute URI Disposition: HOME, SELF-CARE Instructions: COVID-19 Guidance for Persons Under Investigation Additional Instructions: Your Covid test is pending, please have strict quarantine at home until you receive the results. Return to the emergency department for any concerning worsening symptoms. Referrals: GABBY BORJAS CNM [NO LOCAL MD] - Follow up as needed
--- NOTE | 2020-07-11 19:13 | RADIOLOGY REPORT (SQ) ---
EXAM DESCRIPTION: CHEST SINGLE VIEW IMAGES COMPLETED DATE/TIME: 07/11/2020 7:04 pm REASON FOR STUDY: eval consolidation COMPARISON: 12/16/2019 EXAM PARAMETERS: NUMBER OF VIEWS: One view. TECHNIQUE: Single frontal radiographic view of the chest acquired. RADIATION DOSE: NA LIMITATIONS: None. FINDINGS: LUNGS AND PLEURA: No opacities, masses or pneumothorax. No pleural effusion. MEDIASTINUM AND HILAR STRUCTURES: No masses. Contour normal. HEART AND VASCULAR STRUCTURES: Heart normal in size. Normal vasculature. BONES: No acute findings. HARDWARE: None in the chest. OTHER: No other significant finding. IMPRESSION: NO ACUTE RADIOGRAPHIC FINDING IN THE CHEST. TECHNICAL DOCUMENTATION: JOB ID: [id number] 2010 [employer]- All Rights Reserved Reading location - IP/workstation name: [id number]
[2020-07-11 20:06] LABS: A TYPE INFLUENZA AG NEGATIVE (NEGATIVE); B INFLUENZA AG NEGATIVE (NEGATIVE)
[2020-07-11 20:58] VITALS: BP 124/83
== END 2020-07-11 20:59 | disposition home or self-care (01) ==
LOC: ER 18:19
DX: O26.93 Pregnancy related conditions, unspecified, third trimester (principal); J06.9 Acute upper respiratory infection, unspecified; R07.9 Chest pain, unspecified; Z20.828 Contact with and (suspected) exposure to other viral communicable diseases
CPT/HCPCS: 93005; 99285; 87635; 87804; 71045; 93010; J3490 ×2; C9803

== ENCOUNTER 2020-08-04 12:09 | Emergency (ER) | payer MEDICAID ==
--- NOTE | 2020-08-04 12:46 | ER Document Report ---
ED General - General Chief Complaint: Headache Stated Complaint: HEADACHE,NAUSEA,VOMITING Time Seen by Provider: 08/04/20 12:45 TRAVEL OUTSIDE OF THE [place] IN LAST 30 DAYS: No - HPI Notes: 29-year-old female G1, P1 who is 27 weeks presents to the emergency room today for complaints of nausea and vomiting and stomach pains that started yesterday with headache and dizziness that started today. Denies any vaginal bleeding or vaginal discharge. Has not tried any [id number] medications. Patient states she feels like she may just be dehydrated. Patient states she has not had any Covid exposure, she works from home and does not go out because she is high risk due to her . Denies fevers, chills, chest pain,palpitations, shortness of breath, dyspnea, diarrhea, abdominal pain, hematuria,blurred vision, double vision, loss of vision, speech changes, LH, syncope, wheezing, ST, URI, neck pain, weakness, bowel or bladder dysfunction, saddle anesthesia, numbness or tingling in bilateral upper or lower extremities equally, muscle paralysis, weakness in bilateral upper or lower extremities equally or rash. Denies IV drug use. - Related Data Allergies/Adverse Reactions: No Known Allergies Allergy (Verified 08/04/20 13:27) Past Medical History - General Information source: Patient - Social History Smoking Status: Never Smoker Family History: CAD, DM, Hyperlipidemia, Hypertension, Malignancy Pulmonary Medical History: Reports: Hx Asthma Neurological Medical History: Reports: Hx Migraine Renal/ Medical History: Denies: Hx Peritoneal Dialysis Psychiatric Medical History: Reports: Hx Anxiety Past Surgical History: Reports: Hx Tonsillectomy - Immunizations Hx Diphtheria, Pertussis, Tetanus Vaccination: Yes Review of Systems - Review of Systems Constitutional: See HPI EENT: No symptoms reported Cardiovascular: No symptoms reported Respiratory: No symptoms reported Gastrointestinal: No symptoms reported Genitourinary: No symptoms reported Female Genitourinary: No symptoms reported Musculoskeletal: No symptoms reported Skin: No symptoms reported Hematologic/Lymphatic: No symptoms reported Neurological/Psychological: See HPI Physical Exam - Vital signs Vitals: Temp Pulse Resp BP Pulse Ox 98.1 F 94 18 123/74 100 08/04/20 12:14 08/04/20 12:14 08/04/20 12:14 08/04/20 12:14 11/28/20 12:14 - Notes Notes: MEDICATIONS: I agree with the patient medications as charted by the RN. ALLERGIES: I agree with the allergies as charted by the RN. PAST MEDICAL HISTORY/PAST SURGICAL HISTORY: Reviewed and agree as charted by RN. SOCIAL HISTORY: Reviewed and agree as charted by RN. FAMILY HISTORY: No significant familial comorbid conditions directly related to patient complaint EXAM: Reviewed vital signs as charted by RN. PHYSICAL EXAMINATION: reviewed vital signs by RN GENERAL: Well-appearing, well-nourished and in no acute distress. HEAD: Atraumatic, normocephalic. EYES: Pupils equal round and reactive to light, extraocular movements intact, conjunctiva are normal. ENT: TM with bilateral serous effusion, no erythema induration or warmth to touch. No tenderness to bilateral mastoids on palpation. Nares patent, oropharynx clear without exudates. Moist mucous membranes. NECK: Normal range of motion, supple without lymphadenopathy LUNGS: Breath sounds clear to auscultation bilaterally and equal. No wheezes rales or rhonchi. HEART: Regular rate and rhythm without murmurs ABDOMEN: Soft, nontender, nondistended abdomen. No guarding, no rebound. No masses appreciated. Fundus just above umbilicus. No CVA tenderness appreciated bilaterally Female : deferred Musculoskeletal: Normal range of motion, no pitting or edema. No cyanosis. NEUROLOGICAL: Cranial nerves grossly intact. Normal speech, normal gait. Normal sensory, motor exams PSYCH: Normal mood, normal affect. SKIN: Warm, Dry, normal turgor, no rashes or lesions noted. Course - Re-evaluation Re-evalutation: Afebrile vital stable no distress. Nurses notes reviewed. CBC negative for leukocytosis or anemia, CMP negative for hepatic or renal dysfunction, no electrolyte disturbances. Patient serumglucose 69, will give her oral orange juice. patient given IV fluids with Benadryl and Reglan and recheck Accu-Chek 89. On reevaluation patient states she feels much better and is ready to go home. Serum hCG 21,776. Patient states she would like to leave. She does not want to be tested for Covid due to the fact she states she is home at all times and only came to the emergency room because of her headache and feeling dizzy. Discussed with patient that she does need to follow-up with [facility] within the next 24 to 48 hours as well as her primary care provider. Advised to take [id number]-[id number]-livhcii loratadine which is safe in . We will send patient home with a prescription for Reglan for her nausea, advised to avoid any sodas or coffees which may diurese her. After performing a Medical Screening Examination, I estimate there is LOW risk for INTRACRANIAL HEMORRHAGE, ISCHEMIC CVA, MALIGNANT DYSRHYTHMIA, ACUTE CORONARY SYNDROME, MENINGITIS, PULMONARY EMBOLISM, or SEPSIS thus I consider the discharge disposition reasonable. I have reevaluated this patient multiple times and no significant life threatening changes are noted. The patient and I have discussed the diagnosis and risks, and we agree with discharging home with close follow-up with the understanding that symptoms and presentations can change. We also discussed returning to the Emergency Department immediately if new or worsening symptoms occur. We have discussed the symptoms which are most concerning (e.g., changing or worsening pain, weakness, vomiting, fever) that necessitate immediate return. - Vital Signs Vital signs: Temp Pulse Resp BP Pulse Ox 98.1 F 94 18 123/74 100 08/04/20 12:14 08/04/20 12:14 08/04/20 12:14 08/04/20 12:14 08/04/20 12:14 - Laboratory Result Diagrams: 08/04/20 13:35 08/04/20 13:35 Laboratory results interpreted by me: 08/04/20 08/04/20 13:35 13:35 RBC 3.70 L Hgb 10.5 L Hct 31.2 L RDW 14.3 H Sodium 134.9 L Chloride 108 H Carbon Dioxide 21 L BUN 5 L Creatinine 0.43 L Glucose 69 L Total Bilirubin 0.1 L Beta HCG, Quant 84448.00 H Discharge - Discharge Clinical Impression: Dehydration, Condition: Stable Disposition: HOME, SELF-CARE Instructions: Dizziness ([facility]), Headache ([facility]), Reglan ([facility]), Use of Diphenhydramine, Antinausea Medication ([facility]) Additional Instructions: Given IV fluids, Benadryl and Reglan. Your symptoms feel much better. You were given some orange juice to get your blood sugar up. I do suspect that you are dehydrated during her . Your urine was normal, your blood work was normal. It is advised that you follow-up with the [facility] as well as her primary care provider. Please take Reglan as needed for your nausea. Rest and take it easy. Continue taking your vitamins. Return immediately for any new or worsening symptoms. Follow up with primary care provider, call tomorrow to make followup appointment. Prescriptions: Metoclopramide HCl [Reglan 10 mg Tablet] 1 - 2 tab PO ASDIR PRN #15 tablet PRN Reason: Forms: Return to Work Referrals: MICAELA BORJAS MD [ACTIVE STAFF] - Follow up as needed ALICE JARVIS MD [ACTIVE STAFF] - Follow up as needed
[2020-08-04] MEDS ORDERED: DIPHENHYDRAMINE HCL 50 MG/ML VIAL IV ONE (13:12)
[2020-08-04] MEDS ORDERED: METOCLOPRAMIDE HCL INJ/PF 10 MG/2 ML SDV IV ONE (13:12)
[2020-08-04] MEDS ORDERED: NORMAL SALINE 1000 ML 1,000 ML IV ONE ×2 (13:12→15:24)
[2020-08-04 14:02] LABS: ABSOLUTE EOSINOPHILS # (AUTO) 0.1 10^3/uL (0.0-0.6); ABSOLUTE LYMPHOCYTES (AUTO) 1.7 10^3/uL (0.5-4.7); ABSOLUTE MONOCYTES (AUTO) 0.6 10^3/uL (0.1-1.4); ABSOLUTE NEUT (AUTO) 5.5 10^3/uL (1.7-8.2); BASOPHILS % (AUTO) 0.3 % (0-2); EOSINOPHILS % (AUTO) 1.2 % (0-6); HEMATOCRIT 31.2 % (36.0-47.0); HEMOGLOBIN 10.5 g/dL (12.0-15.5); LYMPHOCYTES % (AUTO) 21.3 % (13-45); MEAN CORPUSCULAR HEMOGLOBIN 28.2 pg (27.0-33.4); MEAN CORPUSCULAR HGB CONC 33.5 g/dL (32.0-36.0); MEAN CORPUSCULAR VOLUME 84 fl (80-97); MONOCYTES % (AUTO) 7.8 % (3-13); PLATELET COUNT 378 10^3/uL (150-450); RED CELL DISTRIBUTION WIDTH 14.3 % (11.5-14.0); SEGMENTED NEUTROPHILS % (AUTO) 69.4 % (42-78); TOTAL CELLS COUNTED % (AUTO) 100 %; WHITE BLOOD COUNT 7.9 10^3/uL (4.0-10.5)
[2020-08-04 14:20] LABS: ALBUMIN 3.5 g/dL (3.5-5.0); ALKALINE PHOSPHATASE 76 U/L (38-126); ANION GAP 6 (5-19); ASPARTATE AMINO TRANSFERASE 16 U/L (14-36); BILIRUBIN,TOTAL 0.1 mg/dL (0.2-1.3); BLOOD UREA NITROGEN 5 mg/dL (7-20); CALCIUM 10.1 mg/dL (8.4-10.2); CARBON DIOXIDE 21 mmol/L (22-30); CHLORIDE 108 mmol/L (98-107); POTASSIUM 4.2 mmol/L (3.6-5.0); TOTAL PROTEIN 6.3 g/dL (6.3-8.2)
[2020-08-04 14:39] LABS: GLUCOSE 69 mg/dL (75-110)
[2020-08-04 15:15] LABS: APPEARANCE,URINE CLEAR; BILIRUBIN,URINE NEGATIVE (NEGATIVE); COLOR,URINE STRAW; GLUCOSE, URINE NEGATIVE (NEGATIVE); KETONES,URINE NEGATIVE (NEGATIVE); LEUKOCYTE ESTERASE,URINE NEGATIVE (NEGATIVE); NITRITE,URINE NEGATIVE (NEGATIVE); PROTEIN,URINE NEGATIVE (NEGATIVE); URINE SPECIFIC GRAVITY 1.004; UROBILINOGEN,URINE NEGATIVE mg/dL (<2.0)
[2020-08-04 16:31] VITALS: BP 115/66
--- NOTE | 2020-08-04 16:46 | EKG REPORT ---
SEVERITY:- BORDERLINE ECG - SINUS RHYTHM PROBABLE LEFT ATRIAL ABNORMALITY : Confirmed by: Nawaf Calderon MD 04-Aug-2020 16:45:56
== END 2020-08-04 16:15 | disposition home or self-care (01) ==
LOC: ER 12:09
DX: O21.2 Late vomiting of pregnancy (principal); E86.0 Dehydration; R51.9 Headache, unspecified; Z3A.27 27 weeks gestation of pregnancy
CPT/HCPCS: 93005; 99284; 96361; 96374; 96375; 36415; 82962; 84702; 85025; 80053; 81001; 93010; J1200; J2765; J7030

== ENCOUNTER 2020-09-09 22:51 | Outpatient (CLI) | payer MEDICAID ==
[2020-09-09 23:18] LABS: APPEARANCE,URINE CLEAR; BILIRUBIN,URINE NEGATIVE (NEGATIVE); COLOR,URINE COLORLESS; GLUCOSE, URINE NEGATIVE (NEGATIVE); KETONES,URINE NEGATIVE (NEGATIVE); LEUKOCYTE ESTERASE,URINE NEGATIVE (NEGATIVE); NITRITE,URINE NEGATIVE (NEGATIVE); PROTEIN,URINE NEGATIVE (NEGATIVE); URINE SPECIFIC GRAVITY 1.002; UROBILINOGEN,URINE NEGATIVE mg/dL (<2.0)
[2020-09-09] MEDS ORDERED: RINGERS SOLUTION,LACTATED 500 ML IV ONE (23:32)
[2020-09-09 23:33] LABS: URINE AMPHETAMINES SCREEN NEGATIVE; URINE BARBITURATES SCREEN NEGATIVE; URINE BENZODIAZEPINES SCREEN NEGATIVE; URINE COCAINE SCREEN NEGATIVE; URINE MARIJUANA (THC) SCREEN NEGATIVE; URINE METHADONE SCREEN NEGATIVE; URINE PHENCYCLIDINE SCREEN NEGATIVE
[2020-09-09] MEDS ORDERED: CEFAZOLIN 1 GM/D5W RTU 1 GM/50 ML RTUPB IV ONE (23:35)
[2020-09-10 00:04] LABS: ABSOLUTE EOSINOPHILS # (AUTO) 0.1 10^3/uL (0.0-0.6); ABSOLUTE LYMPHOCYTES (AUTO) 1.9 10^3/uL (0.5-4.7); ABSOLUTE MONOCYTES (AUTO) 0.5 10^3/uL (0.1-1.4); ABSOLUTE NEUT (AUTO) 5.8 10^3/uL (1.7-8.2); BASOPHILS % (AUTO) 0.4 % (0-2); EOSINOPHILS % (AUTO) 0.8 % (0-6); HEMATOCRIT 27.1 % (36.0-47.0); HEMOGLOBIN 9.4 g/dL (12.0-15.5); LYMPHOCYTES % (AUTO) 22.5 % (13-45); MEAN CORPUSCULAR HEMOGLOBIN 28.2 pg (27.0-33.4); MEAN CORPUSCULAR HGB CONC 34.6 g/dL (32.0-36.0); MEAN CORPUSCULAR VOLUME 82 fl (80-97); MONOCYTES % (AUTO) 6.2 % (3-13); PLATELET COUNT 358 10^3/uL (150-450); RED BLOOD COUNT 3.33 10^6/uL (3.72-5.28); RED CELL DISTRIBUTION WIDTH 13.7 % (11.5-14.0); SEGMENTED NEUTROPHILS % (AUTO) 70.1 % (42-78); TOTAL CELLS COUNTED % (AUTO) 100 %; WHITE BLOOD COUNT 8.3 10^3/uL (4.0-10.5)
--- NOTE | 2020-09-10 00:36 | Non Stress Test Report ---
Non Stress Test Datetime Report Generated by CPN: 09/10/2020 00:35 DEMOGRAPHIC EGA NST: 32.6 INDICATION Indication for Study (NST) Other: lc MONITORING Monitor Explained: Monitor Explained; Test Explained; Patient Verbalized Understanding Time on Monitor: 09/09/2020 23:10 Time off Monitor: 09/10/2020 00:18 NST Duration: 68 NST INTERVENTIONS NST Interventions: PO Hydration; Reposition Patient Physician Notified NST: Dr Pantoja BABY A: [id number] BABY A Movement : Present Contraction Frequency : none FHR Baseline : 145 Accelerations : 15X15 Decelerations : None Variability : Moderate 6-25bpm NST Review: Meets Criteria for Reactive NST NST Review and Verified By : Ion Shirley RN NST Results: Reactive NST REPORT Report Trigger: Send Report
--- NOTE | 2020-09-10 00:41 | L&D Progress Notes ---
PROGRESS NOTES Datetime Report Generated by CPN: 09/10/2020 00:41 PROGRESS NOTE Comment: She presents with some cramping at 33 weeks. She is not in labor and her cramping has stopped after IV fluids. Her cervix is closed. I have asked her to be seen in the office this week. LAST VAGINAL EXAM-NURSING Nursing Exam Dilitation: closed Nursing Exam Effacement: thick Nursing Exam Station: high SIGNATURE SIGNATURE: [id number] Signature: with User ID: [email or web address]
[2020-09-10] MEDS ORDERED: CEFAZOLIN 1 GM/D5W RTU 1 GM/50 ML RTUPB IV SCH (07:33)
== END 2020-09-10 00:42 | disposition home or self-care (01) ==
LOC: LC 22:51
PROVIDERS: ATTEND Obstetrics & Gynecology
DX: O99.891 Other specified diseases and conditions complicating pregnancy (principal); M54.9 Dorsalgia, unspecified; R10.9 Unspecified abdominal pain; Z3A.33 33 weeks gestation of pregnancy
CPT/HCPCS: 59025; 36415; 87086; 85025; 81001; 80307; J0690

== ENCOUNTER 2020-10-04 10:43 | Outpatient (CLI) | payer MEDICAID ==
--- NOTE | 2020-10-04 11:40 | Non Stress Test Report ---
Non Stress Test Datetime Report Generated by CPN: 10/04/2020 11:39 DEMOGRAPHIC EGA NST: 36.3 INDICATION Indication for Study (NST) Other: Repeat NST; GDM; IUP at 36.3 VITAL SIGNS Temperature - NST: 97.8 Pulse - NST: 85 RESP - NST: 18 NBPSYS NST: 134 NBPDIA NST: 67 MONITORING Monitor Explained: Monitor Explained; Test Explained; Patient Verbalized Understanding Time on Monitor: 10/04/2020 10:59 Time off Monitor: 10/04/2020 11:24 NST Duration: 25 NST INTERVENTIONS NST Interventions: PO Hydration Physician Notified NST: J. Castro, CNM BABY A: [id number] BABY A Movement : Present Contraction Frequency : Irreg FHR Baseline : 135 Accelerations : 15X15 Decelerations : None Variability : Moderate 6-25bpm NST Review: Meets Criteria for Reactive NST NST Review and Verified By : SAutry NST Results: Reactive NST REPORT Report Trigger: Send Report
== END 2020-10-04 11:29 | disposition home health service (06) ==
LOC: LC 10:43
PROVIDERS: ATTEND Obstetrics & Gynecology
DX: O24.419 Gestational diabetes mellitus in pregnancy, unspecified control (principal); Z3A.36 36 weeks gestation of pregnancy